=== PATIENT | male | born 1950 | race Two or more races ===

== ENCOUNTER 2016-05-16 11:19 | Inpatient (IN) | payer OTHER ==
[~2016-05-16 11:19] MED LIST: LIDOCAINE 1% 30 ML SDV ONE
--- NOTE | 2016-05-16 11:41 | EDPHY ---
H & P Stated Complaint: SENT BY DR ESTEFANI AMARO FOR MRI Time Seen by Provider: 05/16/16 11:23 HPI/ROS: CHIEF COMPLAINT: increasing bilateral lower extremity weakness HISTORY OF PRESENT ILLNESS: 65-year-old male history of thrombocytopenia, end- stage renal disease, Thursday dialysis schedule, multiple vertebral compression fractures, complaining of 10 days of increasing bilateral lower extremity weakness, unable to ambulate, unable to stand, able to transfer with 2 person assistance. He was seen at [facility] this morning and referred to the ER for evaluation and emergent MRI. He denies: Incontinence, retention, saddle anesthesia, fever, chills, abdominal pain, radicular pain lower extremities, footdrop, chest pain, dyspnea , back pain, dizziness. No home oxygen. Primary care provider: Dr. Gio Crandall in [place] REVIEW OF SYSTEMS: A ten point review of systems was performed and is negative with the exception of the items mentioned in the HPI PAST MEDICAL & SURGICAL HISTORY: End-stage renal disease. Thursday dialysis schedule. Cirrhosis. Thrombocytopenia. Multiple vertebral compression fractures. SOCIAL HISTORY:nonsmoker. No injectable drug use. Lives with family members. PHYSICAL EXAM (Prior to examination, patient consented to physical exam, hands were washed and my usual and customary physical exam procedures followed) 1) GENERAL: , alert and oriented. Appears nontoxic 2) HEAD: Normocephalic, atraumatic 3) HEENT: Pupils equal, round, reactive to light bilaterally. Sclera anicteric. 4) NECK: Full range of motion, no meningeal signs. 5) LUNGS: Clear auscultation bilaterally, no wheezes, no rhonchi, no retractions. 6) HEART: Regular rate and rhythm, no murmur, no heave, no gallop. 7) ABDOMEN: No guarding, no rebound, no focal tenderness, negative McBurney's, negative Mcdowell's, negative Rovsing's, negative peritoneal sign, 8) MUSCULOSKELETAL: Moving all extremities, no focal areas of tenderness, no obvious trauma. No peripheral edema or discoloration. 9) BACK: No CVA tenderness, no midline vertebral tenderness, no fluctuance, no step-off, no obvious trauma, no visual or palpable abnormality. The patella and Achilles reflexes are intact equal bilaterally. 10) SKIN: No rash, no petechiae. 11) Neuro: Patella and Achilles reflexes intact equal bilaterally. Rectal tone is normal. He is unable to stand without 2 person assistance. DIFFERENTIAL DIAGNOSIS: In no particular order, including but not limited to, fracture, sprain/strain, cauda equina, spinal infectious etiology, Guillain- [place]. - Personal History Current Tetanus/Diphtheria Vaccine: Yes Tetanus Vaccine Date: < 10 YEARS - Medical/Surgical History Hx Asthma: No Hx Chronic Respiratory Disease: No Hx Diabetes: Yes Hx Cardiac Disease: Yes Hx Renal Disease: Yes Hx Cirrhosis: Yes Hx Alcoholism: No Hx HIV/AIDS: No Hx Splenectomy or Spleen Trauma: No Other PMH: FRACTURE OF TWO VERTEBRAE, DIABETES, RENAL AND LIVER DISEASE - Social History Smoking Status: Never smoked Constitutional: Initial Vital Signs Temperature (C) 37.1 C 05/16/16 11:21 Heart Rate 70 05/16/16 11:21 Respiratory Rate 16 05/16/16 11:21 Blood Pressure 145/70 H 05/16/16 11:21 O2 Sat (%) 87 L 05/16/16 11:21 O2 Delivery Mode Room Air Allergies/Adverse Reactions: No Known Allergies Allergy (Unverified 05/16/16 11:28) Home Medications: Medication Instructions Recorded ALPRAZolam [Xanax 0.5 MG (*)] 0.5 - 1 mg PO HS 05/16/16 Atorvastatin Calcium [Lipitor 40 40 mg PO DAILY 05/16/16 mg (*)] Esomeprazole Magnesium [Nexium 20 mg PO DAILY 05/16/16 24Hr] Folic Acid/Vitamin B Comp W-C 1 tab PO DAILY 05/16/16 [Galina-Adeline Tablet] Hydrocodone/Acetaminophen 1 each PO Q6H PRN 05/16/16 [Hydrocodon-Acetaminoph 7.5-325] Insulin Glargine [Lantus 100 20 units SC HS 05/16/16 UNITS/ML (*)] Insulin Lispro [humALOG LISPRO 100 15 - 20 unit SC TIDMEAL 05/16/16 units/ml (*)] Lactulose [Constulose] 20 gm PO TID PRN 05/16/16 Metoprolol Tartrate [Lopressor 25 12.5 mg PO SUMOWEFR@09 05/16/16 mg (*)] Metoprolol Tartrate [Lopressor 25 12.5 mg PO SUMOWEFR@05/16/16 mg (*)] Rifaximin [Xifaxan] 550 mg PO BID 05/16/16 Sennosides/Docusate Sodium 2 each PO DAILY 05/16/16 [Senna-Docusate Sodium Tablet] Medical Decision Making - Diagnostics Imaging: MRI of the Lumbar Spine (Without Contrast) at 1156 hour Clinical Indications: Lower extremity weakness. Back pain.. Technique: Sagittal and axial T1 and T2 MR sequences of the lumbar spine without contrast. Axial imaging from T11-S1. Findings: There is marked anterior wedge compression fracture superior endplate of T12 with retropulsion of the posterior superior corner that abuts the anterior aspect of the lower thoracic spinal cord. There is also moderate anterior wedge compression fracture superior endplate of L1 with mild retropulsion posterior body of L1 with mild compression upon the dural sac. There is fluid within the central body of L1. There is also marked compression superior endplate of L4 with mild to moderate retropulsion of the posterior superior corner with moderate compression upon the dural sac along with ligamentum flavum hypertrophy contributes to moderate spinal stenosis. Conus medullaris appears normal and ends at L1. The visualized lower thoracic spinal cord has a normal signal without edema. T12-L1: No disk herniation or stenosis. L1-L2: No disk herniation or stenosis. L2-L3: No disk herniation or stenosis. L3-L4: No disk herniation or stenosis. L4-L5: No disk herniation or stenosis. L5-S1: No disk herniation or stenosis. Impression: 1. Compression fractures with associated edema at T12, L1, and L4. While this could just be related to underlying osteoporosis, the possibility of pathologic fracture cannot be excluded.. 2. Retropulsion posterior superior corner of T12 and L4 as well as the posterior body of L1 contributing to moderate spinal stenosis. Findings were discussed by telephone with Teja Bui PA-C at 1254 hrs. Dictated By: Hayden Escalante MD AP Upright and Lateral Chest Clinical Indications: Chest pain and shortness of breath in a 65-year-old male with a history of recently documented spinal vertebral body fractures. Comparison: No previous chest films are available for comparison. Findings: Shallow inspiration exaggerates lung markings. Peribronchial thickening is noted and streaky perihilar opacities are seen bilaterally. No pleural effusions are identified. There is hyperexpansion seen with flattening of the hemidiaphragms noted. The heart is mildly enlarged allowing for AP technique. Pleural surfaces and bony thorax are negative for acute abnormality. Impression: 1. Findings suggestive of COPD/chronic bronchitis are noted. 2. Increased pulmonary opacities are probably secondary to shallow inspiration. 3. Mild cardiac enlargement. A preliminary report was called to Shayne HERCULES at 1300 hours in the Emergency Department. Dictated By: Tony Conrad MD Images reviewed by myself ED Course/Re-evaluation: 11:30 p.m.: This patient was seen in [facility] this morning referred to the ER for further evaluation. He has been evaluated in the ER by myself. Discussed case Dr. Job Willingham in the ER. He has normal rectal tone and good reflexes in the lower extremities however he is unable to ambulate much less transfer without significant assistance. Will plan for likely admission. 1:00 p.m.: Phone consultation with hospitalist, admit to Dr. Stearns. Reviewed patient's laboratory studies and he has numerous abnormalities consistent with his history of cirrhosis, end-stage renal disease past. He is noted to have an elevated D-dimer and history of hypoxemia with no documented diagnosed history chronic pulmonary disease. With his current creatinine of 3.6 will hold on further imaging of the chest the until evaluated by hospitalist 1:07 pm: Phone consultation with neurosurgery DIOMEDES Lopes with Dr. Ngo who will consult. DIOMEDES Lopes evaluated patient in clinic this morning. - Data Points Laboratory Results: Laboratory Results 05/16/16 11:30 05/16/16 11:30 05/16/16 05/16/16 12:30 11:30 WBC 3.63 L 10^3/uL (3.80-9.50) RBC 2.83 L 10^6/uL (4.40-6.38) Hgb 10.6 L g/dL (13.7-17.5) Hct 30.7 L % (40.0-51.0) MCV 108.5 H fL (81.5-99.8) MCH 37.5 H pg (27.9-34.1) MCHC 34.5 g/dL (32.4-36.7) RDW 15.5 H % (11.5-15.2) Plt Count 66 L 10^3/uL (150-400) MPV 10.4 fL (8.7-11.7) Neut % (Auto) 72.8 % (39.3-74.2) Lymph % (Auto) 14.0 L % (15.0-45.0) [place] % (Auto) 8.0 % (4.5-13.0) Eos % (Auto) 4.1 % (0.6-7.6) Baso % (Auto) 0.8 % (0.3-1.7) Nucleat RBC Rel Count 0.0 % (0.0-0.2) Absolute Neuts (auto) 2.64 10^3/uL (1.70-6.50) Absolute Lymphs (auto) 0.51 L 10^3/uL (1.00-3.00) Absolute Monos (auto) 0.29 L 10^3/uL (0.30-0.80) Absolute Eos (auto) 0.15 10^3/uL (0.03-0.40) Absolute Basos (auto) 0.03 10^3/uL (0.02-0.10) Absolute Nucleated RBC 0.00 10^3/uL (0-0.01) Immature Gran % 0.3 % (0.0-1.1) Immature Gran # 0.01 10^3/uL (0.00-0.10) PT 16.4 H SEC (12.0-15.0) INR 1.32 H (0.83-1.16) APTT 36.9 SEC (23.0-38.0) Sodium 132 L mEq/L (134-144) Potassium 4.2 mEq/L (3.5-5.2) Chloride 97 mEq/L (97-110) Carbon Dioxide 26 mEq/l (22-31) Anion Gap 9 mEq/L (8-16) BUN 26 H mg/dL (7-23) Creatinine 3.6 H mg/dL (0.7-1.3) Estimated GFR 17 Glucose 199 H mg/dL (70-100) Calcium 8.2 L mg/dL (8.5-10.4) Total Bilirubin 3.5 H mg/dL (0.1-1.4) Conjugated Bilirubin 0.2 mg/dL (0.0-0.5) Unconjugated Bilirubin 3.3 H mg/dL (0.0-1.1) AST 23 IU/L (17-59) ALT 22 IU/L (21-72) Alkaline Phosphatase 186 H IU/L (38-126) Troponin I < 0.012 ng/mL (0-0.034) Total Protein 6.6 g/dL (6.3-8.2) Albumin 2.9 L g/dL (3.5-5.0) Patient ABO/Rh O POSITIVE Antibody Screen NEGATIVE Medications Given: Discontinued Medications Hydromorphone HCl (Dilaudid) 1 mg IVP EDNOW ONE Stop: 05/16/16 13:07 Last Admin: 05/16/16 13:18 Dose: 1 mg Ondansetron HCl (Zofran) 4 mg IVP EDNOW ONE Stop: 05/16/16 13:07 Last Admin: 05/16/16 13:18 Dose: 4 mg Departure - Departure Disposition: [facility] Inpatient Acute Clinical Impression: Macrocytic anemia, Thrombocytopenia, History of cirrhosis of liver, End stage renal disease, Hypoxemia, Thoracic compression fracture, Lumbar compression fracture, Spinal stenosis of lumbar region Condition: Fair
[2016-05-16 11:52] LABS: % IMMATURE GRANULYOCYTES 0.3 % (0.0-1.1); ABSOLUTE IMMATURE GRANULOCYTES 0.01 10^3/uL (0.00-0.10); ADD DIFF? NO; ADD MORPH? NO; ADD SCAN? NO; ATYPICAL LYMPHOCYTE FLAG 0 (0-99); FRAGMENT RBC FLAG 0 (0-99); HEMATOCRIT 30.7 % (40.0-51.0); HEMOGLOBIN 10.6 g/dL (13.7-17.5); LEFT SHIFT FLG 0 (0-99); LIPEMIA HEMOLYSIS FLAG 90 (0-99); MEAN CELL HEMOGLOBIN 37.5 pg (27.9-34.1); MEAN CELL HEMOGLOBIN CONCENTR. 34.5 g/dL (32.4-36.7); MEAN CELL VOLUME 108.5 fL (81.5-99.8); MEAN PLATELET VOLUME 10.4 fL (8.7-11.7); PLATELET CLUMPS FLAG 20 (0-99); PLATELET COUNT 66 10^3/uL (150-400); RED BLOOD CELL COUNT 2.83 10^6/uL (4.40-6.38); RED CELL DISTRIBUTION WIDTH 15.5 % (11.5-15.2)
[2016-05-16 12:08] LABS: INR 1.32 (0.83-1.16); PROTIME(PATIENT) 16.4 SEC (12.0-15.0)
[2016-05-16 12:09] LABS: APTT 36.9 SEC (23.0-38.0)
[2016-05-16 12:28] LABS: ALANINE AMINOTRANSFERASE 22 IU/L (21-72); ALBUMIN 2.9 g/dL (3.5-5.0); ALKALINE PHOSPHATASE 186 IU/L (38-126); ANION GAP 9 mEq/L (8-16); ASPARTATE AMINOTRANSFERASE 23 IU/L (17-59); BILIRUBIN,TOTAL 3.5 mg/dL (0.1-1.4); BILIRUBIN-CONJUGATED 0.2 mg/dL (0.0-0.5); BILIRUBIN-UNCONJUGATED 3.3 mg/dL (0.0-1.1); CALCIUM 8.2 mg/dL (8.5-10.4); CARBON DIOXIDE 26 mEq/l (22-31); CHLORIDE 97 mEq/L (97-110); CREATININE 3.6 mg/dL (0.7-1.3); GLOMERULAR FILTRATION RATE 17; GLUCOSE 199 mg/dL (70-100); POTASSIUM 4.2 mEq/L (3.5-5.2); SODIUM 132 mEq/L (134-144); TOTAL PROTEIN 6.6 g/dL (6.3-8.2)
[2016-05-16 12:40] LABS: TROPONIN I < 0.012 ng/mL (0-0.034)
--- NOTE | 2016-05-16 12:55 | MR ---
MRI of the Lumbar Spine (Without Contrast) at 1156 hour Clinical Indications: Lower extremity weakness. Back pain.. Technique: Sagittal and axial T1 and T2 MR sequences of the lumbar spine without contrast. Axial i maging from T11-S1. Findings: There is marked anterior wedge compression fracture superior endplate of T12 with retropul theresa of the posterior superior corner that abuts the anterior aspect of the lower thoracic spinal cor d. There is also moderate anterior wedge compression fracture superior endplate of L1 with mild retro pulsion posterior body of L1 with mild compression upon the dural sac. There is fluid within the cent ral body of L1. There is also marked compression superior endplate of L4 with mild to moderate retrop ulsion of the posterior superior corner with moderate compression upon the dural sac along with ligam entum flavum hypertrophy contributes to moderate spinal stenosis. Conus medullaris appears normal an d ends at L1. The visualized lower thoracic spinal cord has a normal signal without edema. T12-L1: No disk herniation or stenosis. L1-L2: No disk herniation or stenosis. L2-L3: No disk herniation or stenosis. L3-L4: No disk herniation or stenosis. L4-L5: No disk herniation or stenosis. L5-S1: No disk herniation or stenosis. Impression: 1. Compression fractures with associated edema at T12, L1, and L4. While this could just be related t o underlying osteoporosis, the possibility of pathologic fracture cannot be excluded.. 2. Retropulsion posterior superior corner of T12 and L4 as well as the posterior body of L1 contribut ing to moderate spinal stenosis. Findings were discussed by telephone with Teja Bui PA-C at 1254 hrs.
--- NOTE | 2016-05-16 13:00 | CPEKG ---
Heart Rate: 70 RR Interval: 857 P-R Interval: 168 QRSD Interval: 96 QT Interval: 436 QTC Interval: 471 P Mcfaddin: -19 QRS Mcfaddin: 16 T Wave Mcfaddin: 35 EKG Severity - NORMAL ECG - EKG Impression: SINUS RHYTHM Electronically Signed By: Job Willingham 16-May-2016 13:33:18
[2016-05-16] MEDS ORDERED: HYDROmorphONE/DILAUDID 1 MG/ML SYR IVP ONE (13:06)
[2016-05-16] MEDS ORDERED: ONDANSETRON 4 MG/2 ML VIAL IVP ONE (13:06)
--- NOTE | 2016-05-16 13:06 | DX ---
AP Upright and Lateral Chest Clinical Indications: Chest pain and shortness of breath in a 65-year-old male with a history of rec ently documented spinal vertebral body fractures. Comparison: No previous chest films are available for comparison. Findings: Shallow inspiration exaggerates lung markings. Peribronchial thickening is noted and streak y perihilar opacities are seen bilaterally. No pleural effusions are identified. There is hyperexpans ion seen with flattening of the hemidiaphragms noted. The heart is mildly enlarged allowing for AP te chnique. Pleural surfaces and bony thorax are negative for acute abnormality. Impression: 1. Findings suggestive of COPD/chronic bronchitis are noted. 2. Increased pulmonary opacities are probably secondary to shallow inspiration. 3. Mild cardiac enlargement. A preliminary report was called to Shayne HERCULES at 1300 hours in the Emergency Department.
--- NOTE | 2016-05-16 14:19 | US ---
Ultrasound Venous Duplex/Doppler left Leg History: Pain and swelling. Findings: Ultrasound venous duplex and Doppler imaging of the common femoral vein, femoral vein, pop liteal vein, calf veins, greater saphenous vein origin, and contralateral common femoral vein demonst rates normal compressibility, color flow, and Doppler flow without deep venous thrombosis. Impression: No deep venous thrombosis left leg. Results called to Shayne Bui PA-C.
[2016-05-16] MEDS ORDERED: ONDANSETRON DISINTEGRATING 4 MG TAB PO PRN (15:41)
[2016-05-16] MEDS ORDERED: ACETAMINOPHEN 325 MG TAB PO PRN (15:41)
[2016-05-16] MEDS ORDERED: HYDROmorphONE/DILAUDID 1 MG/ML SYR IVP PRN (15:41)
[2016-05-16] MEDS ORDERED: ONDANSETRON 4 MG/2 ML VIAL IVP PRN (15:41)
[2016-05-16] MEDS ORDERED: NS 1,000 ML IV SCH (15:45)
[2016-05-16] MEDS ORDERED: D50W 25 GM/50 ML SYR IVP PRN (15:47)
--- NOTE | 2016-05-16 15:47 | MR ---
MRI Thoracic Spine Without Contrast History: Leg weakness. Back pain. Fracture of the lumbar spine. Comparison: MRI of the lumbar spine performed earlier today. Technique: MRI was performed of the thoracic spine using a 3 Amanda MRI system. Sagittal, coronal, and axial imaging was obtained with standard imaging sequences. Findings: The severe compression fractures of T12 and L1 are again visualized and described in the MR I lumbar spine report. There is mild anterior wedge compression deformity of T2, T5, and T4 vertebral bodies involving the superior endplate anteriorly. No evidence of bone marrow edema indicating these are chronic. Thoracic spinal cord is normal in size and signal intensity. T1-T2 through T6-T7 levels are unremarkable. T7-T1 level demonstrates a small central protrusion minimally effacing the anterior thecal sac and mi ld uncovertebral joint hypertrophy causing mild left neural foraminal narrowing. T8-T9 level is unremarkable. T9-T10 level demonstrates a small right parasagittal protrusion mildly effacing the anterior thecal s ac. T10-T11 level is unremarkable. T11-T12 level demonstrates a mild retropulsion of the posterior cortex of T12 described in the MRI wendy mbar spine report. Impression: 1. The severe compression fractures of T12 and L1 are described in the MRI lumbar spine report perfor med earlier today. 2. Mild chronic anterior wedge compression deformities with a chronic appearance of T12, T4, and T5 v ertebral bodies. 3. Mild multilevel degenerative disk and degenerative joint disease of the thoracic spine as detailed above.
--- NOTE | 2016-05-16 16:01 | PDGENHP ---
History and Physical - Chief Complaint BILATERAL LE WEAKNESS - History of Present Illness 65-year-old male history of thrombocytopenia, end-stage renal disease, Thursday dialysis schedule, multiple vertebral compression fractures, complaining of 10 days of increasing bilateral lower extremity weakness, unable to ambulate, unable to stand, able to transfer with 2 person assistance. He was seen at [facility] this morning and referred to the ER for evaluation and emergent MRI. He denies: Incontinence, retention, saddle anesthesia, fever, chills, abdominal pain, radicular pain lower extremities, footdrop, chest pain, dyspnea , back pain, dizziness. No home oxygen. MRI is c/w acute T12-L4 compression fracture. ROS: + per HPI, otherwise negative PMHX: cirrhosis, ESRD, thrombocytopenia, IDDM, HTN, Compression fracture, GERD, HLD Soc: prior ETOH, prior Tobacco, no illicits FmHx: unknown Med/all: see med rec O: VSS NAD AAOX3 MMM RRR CTA B S/NT/ND NO EDEMA ABLE TO MOVE BOTH LEGS History Information - Allergies/Home Medication List Allergies/Adverse Reactions: No Known Allergies Allergy (Unverified 05/16/16 11:28) Home Medications: ALPRAZolam [Xanax 0.5 MG (*)] 0.5 - 1 mg PO HS 05/16/16 [Last Taken 05/15/16] Atorvastatin Calcium [Lipitor 40 mg (*)] 40 mg PO DAILY 05/16/16 [Last Taken ] Esomeprazole Magnesium [Nexium 24Hr] 20 mg PO DAILY 05/16/16 [Last Taken ] Folic Acid/Vitamin B Comp W-C [Galina-Adeline Tablet] 1 tab PO DAILY 05/16/16 [Last Taken Unknown] Hydrocodone/Acetaminophen [Hydrocodon-Acetaminoph 7.5-325] 1 each PO Q6H PRN [Last Taken Unknown] Insulin Glargine [Lantus 100 UNITS/ML (*)] 20 units SC HS 05/16/16 [Last Taken 05/15/16] Insulin Lispro [humALOG LISPRO 100 units/ml (*)] 15 - 20 unit SC TIDMEAL [Last Taken 05/15/16] Lactulose [Constulose] 20 gm PO TID PRN 05/16/16 [Last Taken 05/15/16] Metoprolol Tartrate [Lopressor 25 mg (*)] 12.5 mg PO SUMOWEFR@09 05/16/16 [Last Taken 05/15/16] Metoprolol Tartrate [Lopressor 25 mg (*)] 12.5 mg PO SUMOWEFR@05/16/16 [Last Taken 05/15/16] Rifaximin [Xifaxan] 550 mg PO BID 05/16/16 [Last Taken 05/15/16] Sennosides/Docusate Sodium [Senna-Docusate Sodium Tablet] 2 each PO DAILY [Last Taken 05/15/16] I have personally reviewed and updated: medical history, social history - Social History Smoking Status: Never smoked Physical Exam Temp Pulse Resp BP Pulse Ox 37.1 C 61 16 133/72 H 100 05/16/16 11:21 05/16/16 14:00 05/16/16 14:00 05/16/16 14:00 05/16/16 14:00 Lab Data & Imaging Review 05/16/16 11:30 05/16/16 11:30 WBC 3.63 10^3/uL (3.80-9.50) L 05/16/16 11:30 RBC 2.83 10^6/uL (4.40-6.38) L 05/16/16 11:30 Hgb 10.6 g/dL (13.7-17.5) L 05/16/16 11:30 Hct 30.7 % (40.0-51.0) L 05/16/16 11:30 MCV 108.5 fL (81.5-99.8) H 05/16/16 11:30 MCH 37.5 pg (27.9-34.1) H 05/16/16 11:30 MCHC 34.5 g/dL (32.4-36.7) 05/16/16 11:30 RDW 15.5 % (11.5-15.2) H 05/16/16 11:30 Plt Count 66 10^3/uL (150-400) L 05/16/16 11:30 MPV 10.4 fL (8.7-11.7) 05/16/16 11:30 Neut % (Auto) 72.8 % (39.3-74.2) 05/16/16 11:30 Lymph % (Auto) 14.0 % (15.0-45.0) L 05/16/16 11:30 [place] % (Auto) 8.0 % (4.5-13.0) 05/16/16 11:30 Eos % (Auto) 4.1 % (0.6-7.6) 05/16/16 11:30 Baso % (Auto) 0.8 % (0.3-1.7) 05/16/16 11:30 Nucleat RBC Rel Count 0.0 % (0.0-0.2) 05/16/16 11:30 Absolute Neuts (auto) 2.64 10^3/uL (1.70-6.50) 05/16/16 11:30 Absolute Lymphs (auto) 0.51 10^3/uL (1.00-3.00) L 05/16/16 11:30 Absolute Monos (auto) 0.29 10^3/uL (0.30-0.80) L 05/16/16 11:30 Absolute Eos (auto) 0.15 10^3/uL (0.03-0.40) 05/16/16 11:30 Absolute Basos (auto) 0.03 10^3/uL (0.02-0.10) 05/16/16 11:30 Absolute Nucleated RBC 0.00 10^3/uL (0-0.01) 05/16/16 11:30 Immature Gran % 0.3 % (0.0-1.1) 05/16/16 11:30 Immature Gran # 0.01 10^3/uL (0.00-0.10) 05/16/16 11:30 PT 16.4 SEC (12.0-15.0) H 05/16/16 11:30 INR 1.32 (0.83-1.16) H 05/16/16 11:30 APTT 36.9 SEC (23.0-38.0) 05/16/16 11:30 D-Dimer 1.97 ug/mLFEU (0.00-0.50) H 05/16/16 Unknown Sodium 132 mEq/L (134-144) L 05/16/16 11:30 Potassium 4.2 mEq/L (3.5-5.2) 05/16/16 11:30 Chloride 97 mEq/L (97-110) 05/16/16 11:30 Carbon Dioxide 26 mEq/l (22-31) 05/16/16 11:30 Anion Gap 9 mEq/L (8-16) 05/16/16 11:30 BUN 26 mg/dL (7-23) H 05/16/16 11:30 Creatinine 3.6 mg/dL (0.7-1.3) H 05/16/16 11:30 Estimated GFR 17 05/16/16 11:30 Glucose 199 mg/dL (70-100) H 05/16/16 11:30 Calcium 8.2 mg/dL (8.5-10.4) L 05/16/16 11:30 Total Bilirubin 3.5 mg/dL (0.1-1.4) H 05/16/16 11:30 Conjugated Bilirubin 0.2 mg/dL (0.0-0.5) 05/16/16 11:30 Unconjugated Bilirubin 3.3 mg/dL (0.0-1.1) H 05/16/16 11:30 AST 23 IU/L (17-59) 05/16/16 11:30 ALT 22 IU/L (21-72) 05/16/16 11:30 Alkaline Phosphatase 186 IU/L (38-126) H 05/16/16 11:30 Troponin I < 0.012 ng/mL (0-0.034) 05/16/16 11:30 Total Protein 6.6 g/dL (6.3-8.2) 05/16/16 11:30 Albumin 2.9 g/dL (3.5-5.0) L 05/16/16 11:30 Patient ABO/Rh O POSITIVE 05/16/16 12:30 Antibody Screen NEGATIVE 05/16/16 12:30 Assessment & Plan Assessment: #ACUTE COMPRESSION FRACTURE OF T12-L4 #BILATERAL LOWER EXTREMITY WEAKNESS DUE TO ACUTE COMPRESSION FRACTURE AND SPINAL STENOSIS #ESRD, ON HD T,TH,SAT #HX OF CIRRHOSIS #THROMBOCYTOPENIA DUE TO LIVER DISEASE #IDDM, ON HOME INSULIN, ISS STARTED #ANEMIA #HLD PLAN: ADMIT NEURO TO CONSULT WILL KEEP NPO UNTIL SEEN BY NEURO NEPHROLOGY TO CONSULT RE DIALYSIS SCD'S PAIN MANAGEMENT CONT HOME MEDS APPROPRIATE TOTAL CARE TIME IS 60 MINS
[2016-05-16] MEDS: oxyCODONE IR 5 MG TAB PO PRN ×2 (17:35→20:56)
--- NOTE | 2016-05-16 17:41 | GCON ---
[f rep st] CONSULTATION NEUROSURGERY CONSULTATION CHIEF COMPLAINT: Worsening leg weakness. HISTORY OF PRESENT ILLNESS: The patient is a 65-year-old male patient, who presented to our office t justa with worsening leg weakness. He has a history significant for thrombocytopenia, end-stage renal disease on dialysis, multiple vertebral compression fractures of the past several months. We most r ecently discovered a new L1 compression fracture which we have been treating conservatively in a [facility] e. The patient presented to clinic today with repeat followup x-rays which did show stable fracture; however, he reported worsening weakness in his legs. His states he has difficulty getting up t o use the bathroom and is unstable. He states he can no longer get into his truck and has lost the a bility to be able to drive. Given his concerning worsening neurologic status, he was directed to the emergency room for further treatment and workup. On examination today, the patient complained of pa in in the back of his legs and stated his legs are weak. He was in a wheelchair. He denied any numb ness or tingling. No loss of function in his arms. No nausea, vomiting, headaches, vision changes. He also denied any incontinence. REVIEW OF SYSTEMS: Please see above mentioned in the HPI. PAST MEDICAL/SURGICAL HISTORY: End-stage renal disease on dialysis, cirrhosis, thrombocytopenia, lum bar and thoracic compression fractures. SOCIAL HISTORY: The patient is . He lives with his in [place]. He is a nonsmoker, no drug use. ALLERGIES: He has no known drug allergies. MEDICATIONS: At home: Xanax, Lipitor, Nexium, folic acid, [place], insulin, lactulose, metoprolol, ri faximin, senna. FAMILY HISTORY: Significant for diabetes and hypertension in the family. PHYSICAL EXAMINATION: VITAL SIGNS: Blood pressure is 133/72, respirations 16, O2 saturation 100% on room air, heart rate is 61. GENERAL: Well-developed, elderly male patient, seated in a wheelchair. He is in no acute distress. He moves all extremities independently. Motor examination of bilatera l upper extremities is without gross motor deficits. Motor examination of bilateral lower extremitie s is approximately 4+ out of 5 for hip flexion, flexion and extension of the knee and plantar and kaia siflexion. He has intact sensation throughout the normal dermatomal distribution of his body. He an d his state that he has extreme difficulty getting up out of his wheelchair. Cranial nerves 2-1 2 are grossly intact. His breathing is nonlabored. Rectal examination was performed by ER DIOMEDES and th e report is that the patient had normal rectal tone. LABORATORY: White blood cells 3.63, red blood cells 2.83, hemoglobin 10.6, hematocrit 30, platelet c ount is 66. PT is 16.4, INR is 1.32, APTT is 36.9. D-dimer is 1.97. Chemistry: Sodium is 132, pot assium 4.2, chloride 97, carbon dioxide 26, anion gap 9, BUN 26, creatinine 3.6, GFR 17, glucose 199, calcium 8.2, total bilirubin 3.5, conjugated bilirubin 0.2, unconjugated 3.3, AST is 23, ALT is 22, alkaline phosphatase is 186. Troponin less than 0.012. Total protein is 6.6, albumin is 2.9. ABO R h, he is O positive, antibody screen negative. IMAGING: MRI of the lumbar spine, without contrast: Compression fractures with associated edema at T12-L1 and L4. While this could just be related to underlying osteoporosis, the possibility of patho logic fracture cannot be excluded. Retropulsion posterior superior corner of T12 and L4 as well as t he posterior body of L1 contributing to moderate spinal stenosis. Chest x-ray, impression: Findings suggestive of COPD/chronic bronchitis are noted. Increased pulmonary opacities are probably seconda ry to shallow inspiration. Mild cardiac enlargement. Addendum: Not mentioned in the original repor t, linear calcification is seen in the right neck which could reflect carotid arterial calcification versus artifact of some kind. Electrocardiogram: Normal ECG in sinus rhythm. Venous study of left leg: No deep vein thrombosis of the left leg. IMPRESSION: This is a 65-year-old male patient with known lumbar compression fractures with worsenin g leg weakness, admitted to the hospitalist service for further workup of his weakness. PLAN: Dr. Ngo and I have both seen the patient today. We have reviewed his lumbar spine MRI. Al though he does have some stenosis associated with his compression fractures with a little bit of retr opulsion, there is no significant cord compression that would explain his recent weakness in his legs . We have therefore ordered an MRI of the thoracic spine to look for any other areas of possible cor d compression that could explain his leg weakness. The patient has been admitted to the Internal Med icine service for further workup of his multiple medical issues and to examine for any other potentia l sources of his weakness. Please contact the neurosurgery service with any additional questions or concerns. /[id number]/MODL
[2016-05-16] MEDS ORDERED: LACTULOSE 20 GM/30 ML UDCUP PO PRN (18:30)
[2016-05-16] MEDS ORDERED: HYDROCODONE/APAP 10/325 TAB PO PRN (18:31)
[2016-05-16] MEDS: INSULIN LISPRO 100 UNIT/ML SC SCH (18:47)
[2016-05-16] MEDS: RIFAXIMIN 550 MG TAB PO SCH (20:55)
[2016-05-16] MEDS: ALPRAZolam 0.5 MG TAB PO SCH (20:55)
[2016-05-16] MEDS ORDERED: METOPROLOL TARTRATE 25 MG TAB PO SCH (21:00)
[2016-05-16] MEDS: INSULIN GLARGINE 100 UNITS/ML SYRINGE SC SCH (21:11)
--- NOTE | 2016-05-16 22:22 | GCON ---
[f rep st] CONSULTATION DATE OF CONSULTATION: 05/16/2016 REASON FOR CONSULTATION: End-stage renal disease, in need of dialysis. REASON FOR ADMISSION: Back pain with multiple fractures with new neurologic symptoms. PLAN: 1. Hep-Lock IV. 2. Avoid IVs, blood pressures, blood draws in the patient's left arm. 3. Plan for dialysis in the morning. 4. Treat pain as you are doing next followup on Neurosurgery's recommendation regarding any further evaluation and/or treatment. HISTORY: The patient is a very pleasant, 65-year-old gentleman I have been asked to consult on by Dr Dale Stearns. He was admitted after being seen in the neurosurgery office today due to increased neurologic symptoms in the presence of multiple compression fractures in his thoracolumbar spine. He has end-stage renal disease, and has been on dialysis a little bit over 3 years. He has underlyin g diabetes and hypertension. He also carries the diagnosis of alcoholic cirrhosis complicated by por ariel hypertension with varices and thrombocytopenia. He is followed by Hepatology down at [facility]. Describes having had banding and other treatment of his varices. He has not had any alcohol for last 4 years or so. His other medical problems include history of gall stones, coronary artery disease requiring stent pl acement, gastroesophageal reflux disease, and hyperlipidemia. Surgical procedures have been treatment of his esophageal varices, cardiac stent placement, AV fistul a construction, and cataract surgery. MEDICATIONS: Outpatient medications have been lactulose 20 grams p.o. 3 times daily as needed, Nexiu m 20 mg daily, folic acid in the form of [place] 1 daily, senna docusate tablet 2 tablets daily, At orvastatin 40 mg daily, Xanax 0.5 to 1 mg at bedtime, metoprolol tartrate 12.5 mg 4 times weekly in t he evening Thursday, Thursday, Thursday, Thursday and 12.5 mg in the morning, Thursday, Thursday, Thursday, . It looks like he takes no hypertensive medications on his dialysis days. He takes insulin gl argine in the form of Lantus 20 units at bedtime, Vicodin 7.5/325 every 6 hours as needed for pain, l ispro insulin 15 to 20 units with each meal, and Xifaxan 550 mg twice daily. ALLERGIES: None. FAMILY HISTORY: Noncontributory. SOCIAL HISTORY: Noncontributory. He dialyzes Thursday, , Thursday at the [facility]ialysis unit under the care of Dr. Harrison Sykes. He underwent his regular dialysis yesterday. He states sometimes he is cramping when he has too much fluid removed. He has bleeding related to his thrombocytopenia after cannulation of hi s fistula and needs to use special bandages to prevent excessive bleeding. REVIEW OF SYSTEMS: Negative except for that described above. PHYSICAL EXAMINATION: GENERAL: He is afebrile with a temp of 36.8, pulse 72, respirations 20, blood pressure 152/69, saturating 100% on 2 liters nasal cannula. Appears in no apparent distress. He is a thin elderly male, lying flat in bed. HEENT: Atraumatic, normocephalic. NECK: Unremarkable. H EART: Regular with no extra heart sounds. LUNGS: Grossly clear to auscultation. ABDOMEN: Positiv e bowel sounds. Soft, nontender. No obvious organomegaly or masses. EXTREMITIES: Free of edema. SKIN: Free of rashes. His left upper arm AV fistula is patent and otherwise unremarkable. LABORATORY DATA: Labs show a potassium of 4.2, INR elevated at 1.32, and hemoglobin 10.6, with a matias telet count of 66,000. ASSESSMENT: End-stage renal disease, in need of dialysis. We will plan for his routine dialysis jake orrow. Will probably be done late morning or early afternoon. Hepatitis serologies have been reques helen from his dialysis unit. He should be able to be done in the dialysis room. We will bring him do wn in his bed and try and to keep him comfortable given his back problems. His dialysis access looks unremarkable. Has a good bruit and thrill. It looks like he had a recent infiltrate. The lower part of his fistula looks good and should be suitable for cannulation. He typically has modest amounts of fluid accumulation. I am going to Hep-Lock his IV as this will ju st interfere with his fluid balance associated with his end-stage renal disease. We will try and ult rafilter him for a liter of fluid. He has no lower extremity edema and, therefore, I do not think he has much in the way of volume overload currently. Copy requested to: [facility] /[id number]/MODL
[2016-05-17] MEDS: oxyCODONE IR 5 MG TAB PO PRN ×4 (04:05→20:17)
[2016-05-17 05:37] LABS: % IMMATURE GRANULYOCYTES 0.3 % (0.0-1.1); ABSOLUTE IMMATURE GRANULOCYTES 0.01 10^3/uL (0.00-0.10); ADD DIFF? NO; ADD MORPH? NO; ADD SCAN? NO; ATYPICAL LYMPHOCYTE FLAG 10 (0-99); FRAGMENT RBC FLAG 0 (0-99); HEMATOCRIT 31.7 % (40.0-51.0); HEMOGLOBIN 10.9 g/dL (13.7-17.5); LEFT SHIFT FLG 0 (0-99); LIPEMIA HEMOLYSIS FLAG 90 (0-99); MEAN CELL HEMOGLOBIN CONCENTR. 34.4 g/dL (32.4-36.7); MEAN CELL VOLUME 110.5 fL (81.5-99.8); MEAN PLATELET VOLUME 8.6 fL (8.7-11.7); PLATELET CLUMPS FLAG 0 (0-99); PLATELET COUNT 70 10^3/uL (150-400); RED BLOOD CELL COUNT 2.87 10^6/uL (4.40-6.38); RED CELL DISTRIBUTION WIDTH 15.3 % (11.5-15.2)
[2016-05-17 05:50] LABS: ANION GAP 8 mEq/L (8-16); CALCIUM 8.8 mg/dL (8.5-10.4); CARBON DIOXIDE 25 mEq/l (22-31); CHLORIDE 100 mEq/L (97-110); CREATININE 4.5 mg/dL (0.7-1.3); GLOMERULAR FILTRATION RATE 13; GLUCOSE 102 mg/dL (70-100); POTASSIUM 4.6 mEq/L (3.5-5.2); SODIUM 133 mEq/L (134-144)
[2016-05-17] MEDS: INSULIN LISPRO 100 UNIT/ML SC SCH ×3 (07:57→17:35)
[2016-05-17] MEDS ORDERED: ATORVASTATIN CALCIUM 40 MG TAB PO SCH (09:00)
--- NOTE | 2016-05-17 09:00 | SOAPPROG ---
MICHAEL Progress Note Assessment/Plan: Assessment:Plan: ESRD-plan for Hd today -RN will be in around 10 -will need Tipstops on AVF cannulation sites due to thrombocytopenia -if he ends up with bleeding, we may want to use smaller needles in the future Access-looks stable Back pain-per neurosurgery 05/17/16 08:58 Subjective: foot pain and numbness Objective: Vital Signs Temp Pulse Resp BP Pulse Ox 36.6 C 67 17 134/58 H 98 05/17/16 08:02 05/17/16 08:02 05/17/16 08:02 05/17/16 08:02 05/17/16 08:02 Laboratory Results 05/17/16 05:29 05/17/16 05:29 PT 16.4 SEC (12.0-15.0) H 05/16/16 11:30 INR 1.32 (0.83-1.16) H 05/16/16 11:30 Physical Exam - Physical Exam General Appearance: WD/WN, alert, mild distress EENT: normal ENT inspection Neck: normal inspection Respiratory: lungs clear, normal breath sounds, No respiratory distress Cardiac/Chest: regular rate, rhythm, other (possible murmur) Abdomen: normal bowel sounds, non-tender, soft Extremities: No swelling ICD10 Worksheet Patient Problems: Problems Problem Status Diagnosed End stage renal disease Acute History of cirrhosis of liver Acute Hypoxemia Acute Lumbar compression fracture Acute Macrocytic anemia Acute Spinal stenosis of lumbar region Acute Thoracic compression fracture Acute Thrombocytopenia Acute
[2016-05-17 09:47] LABS: HEMATOCRIT 31.5 % (40.0-51.0)
[2016-05-17 10:25] LABS: C-REACTIVE PROTEIN 5.7 mg/L (<10.0)
--- NOTE | 2016-05-17 13:17 | NEUSURGPN ---
Assessment/Plan: HD#1 admitted with ?LE weakness and back pain. Has T12, L1, L4 severe compression fractures. MRI lumbar spine shows moderate canal stenosis, but no obvious nerve compression. The T-spine MRI again shows severe compression fx but no neural compression. -His platelets are 70k today - given his many cormorbidities and thrombocytopenia he is not a great surgical candidate -possibly a candidate for kyphoplasty if his pain cannot be controlled medically and if his platelets can be kept above 75k would recommend medical pain control for now, ema brace if it helps with pain Subjective: complains of severe low back pain Objective: AAOx3 TUCKER x 4, strength seems full in all extremities sensation normal, c/o severe pain with palpation of the low back - Physician Patient Seen by : [facility] Physical Exam - Vitals, I&O, Labs I and O 05/16/16 05/17/16 05/18/16 05:59 05:59 05:59 Weight 66 kg Vital Signs Temp Pulse Resp BP Pulse Ox 36.6 C 67 17 134/58 H 98 05/17/16 08:02 05/17/16 08:02 05/17/16 08:02 05/17/16 08:02 05/17/16 08:02 Laboratory Results 05/17/16 05:30 05/17/16 05:29 ICD10 Worksheet Patient Problems: Problems Problem Status Diagnosed End stage renal disease Acute History of cirrhosis of liver Acute Hypoxemia Acute Lumbar compression fracture Acute Macrocytic anemia Acute Spinal stenosis of lumbar region Acute Thoracic compression fracture Acute Thrombocytopenia Acute
--- NOTE | 2016-05-17 14:23 | GCON ---
[f rep st] CONSULTATION NEUROLOGY CONSULTATION DATE OF CONSULTATION: 05/17/2016 REFERRING PHYSICIAN: Yayo David MD CHIEF COMPLAINT: Lower extremity weakness. HISTORY OF PRESENT ILLNESS: The patient is a very pleasant 65-year-old gentleman who is dialysis dependent who has had mid and low back pain for 1 year. In the last 2 weeks, his pain has been increasing with significant pain in his bilateral lower extremities, radiating from his low back into his buttocks into his proximal lower extremities. This has decreased his ability to ambulate. He reports more pain than weakness, but also when questioned feels there is weakness as well. No symptoms in his upper extremities or bulbar region. No cognitive symptoms. No constitutional symptoms. No recent infections. No incontinence or saddle anesthesia. He denies a zion sensory level or does not speak much about any sensory symptoms. When asked, he was not forthcoming about any definitive numbness. He may be having some paresthetic pain in his lower extremities. REVIEW OF SYSTEMS: A 10-point review of systems was performed and only pertinent to the HPI. PAST MEDICAL HISTORY: Please refer to Dr. Stearns's history and physical. SOCIAL HISTORY: Please refer to Dr. Stearns's history and physical. FAMILY HISTORY: Please refer to Dr. Stearns's history and physical. HOME MEDICATIONS: Please refer to Dr. Stearns's history and physical. ALLERGIES: Please refer to Dr. Stearns's history and physical. PHYSICAL EXAMINATION: VITAL SIGNS: Blood pressure 116/52, heart rate 67, he is afebrile at 36.6, respiratory rate is 17. NEUROLOGIC: Higher mental function : Patient is awake and alert. He is lucid. I am able to converse with him normally. On his cranial nerve exam, it is normal II through VII and XII. On his motor exam, his upper extremity strength is normal and deep tendon reflexes are 0 to 1+, normal, symmetric. Lower extremity: The pain the patient has very limited power testing due to pain in the hip and knee flexors and extensors. When the patient tried to extend at the left hip, it causes increased pain in the right leg, but when extending his right hip there was less pain. Distally, his anterior and posterior tibialis and gastrocnemius muscles were normal. The patient had 3+ reflexes at his knees bilaterally and an upgoing toe on the left; with right plantar stimulation was indeterminate. Sensory exam: The patient endorsed normal light touch. Coordination was unremarkable. LABORATORY TESTS: The patient had a lumbar MRI which showed compression fractures with associated edema at T12-L1 and L4, in addition retropulsion posterior superior corner of T12 and L4, at the posterior body of L1 contributing to moderate spinal stenosis. He also had a thoracic MRI confirming severe compression fractures T12 and L1 described an MRI of the lumbar spine report, along with some mild chronic anterior wedge compression deformities of T12, T4, T5. IMPRESSION AND PLAN: 1. Lower extremity weakness. 2. [id number] back pain. 3. Lower extremity pain. 4. Lumbar spinal stenosis. 5. Renal Failure, on HD The patient has significantly brisk reflexes in his lower extremities which would exclude other conditions like Guillain-[place] syndrome at this point. Overall, the clinical history and neurologic exam best fit with the thoracolumbar spinal disease visualized on his MRI. He is having quite a bit of pain related to his disk disease which may be limiting his mobility, but there are neurologic changes in the form of brisk reflexes, which is also likely symptomatic from his spine, along with some weakness. It is certainly difficult the parse out at this point because his exam is limited by pain. I discussed these findings with the Neurosurgery Team, Lori HERCULES, and she will speak with her attending from Neurosurgery. Further management per Neurosurgery regarding his spinal disease. I have no further recommendations now. We will sign off and continue to follow as needed. Please do not hesitate to call if there are any further questions or neurologic changes with this very pleasant gentleman. Thank you for this consultation. /[id number]/MODL MTDD
[2016-05-17] MEDS: NEPHROVITE FOLIC ACID/VIT B&C 1 TAB PO SCH (15:48)
[2016-05-17] MEDS: PANTOPRAZOLE SODIUM 40 MG TAB PO SCH (15:48)
[2016-05-17] MEDS: SENNOSIDES/DOCUSATE SODIUM TAB PO SCH (15:48)
[2016-05-17] MEDS: RIFAXIMIN 550 MG TAB PO SCH ×2 (15:51→20:15)
--- NOTE | 2016-05-17 16:24 | HOSPPROG ---
Hospitalist Progress Note Assessment/Plan: Assessment: 65-year-old male presents with acute bilateral lower extremity paresis in the setting of acute thoracolumbar vertebral body compression fracture Plan: 1. Paresis. Acute, most likely secondary to thoracolumbar process, although overt cord compression not noted on CT or L-spine MRI. -discussed with Dr. Zaidi, he advises that patient's neurologic exam is consistent with thoraco lumbar process given his brisk reflexes and a positive Babinski on left lower extremity as well as weakness and urinary retention -encourage ongoing neuro surgical consultation with the patient to ensure that he understands that there is a risk of progressive and potentially permanent paresis if he does not elect for surgery 2. Thoracolumbar vertebral body compression fracture. Acute, present on MRI, resulting in significant amount of lower back pain as well as bilateral radiculopathy -interventional options currently include neurosurgery versus kyphoplasty -will obtain interventional radiology consultation so that patient and understand what kyphoplasty entails and that it may relieve pain symptoms at the local affected area but may not eliminate his risk of paresis or paralysis if further compression ensues -patient with RCRI score of 3-4, conferring at least of 5% perioperative risk of cardiovascular morbidity and mortality, at least a 9% risk of perioperative pulmonary edema/ventricular arrhythmias/other cardiac events -continue pain management strategies and introduce low-dose gabapentin 3. End-stage renal disease. Continue hemodialysis as scheduled, received today 4. Thrombocytopenia. Secondary to chronic liver disease, will ultimately affect the decision not to proceed or not proceed with surgery -continue to monitor serum platelet level and consider platelet transfusion prior to surgical procedure given patient's low platelet count as well as high likelihood of some platelet dysfunction in the setting of end-stage renal disease 5. Cirrhosis. Chronic 6. Diabetes mellitus. Insulin dependent, continue on insulin sliding scale, A1c pending Diet. Renal, NPO after midnight in case procedure tomorrow Prophylaxis. High risk patient, heparin subcu, hold tonight's dosing and placed on SCDs Code. Full Disposition. Anticipated discharge uncertain at this time, anticipated length stay remains greater than 48 hours warranting inpatient admission status for acute paresis in the setting of thoracolumbar vertebral body compression fracture requiring surgical intervention but complicated by end-stage renal disease and thrombocytopenia. I discussed the outlined for possible surgical options with the patient and his , deferring specific questions to our neurosurgical consults as well as Interventional Radiology once available. Subjective: Patient reports ongoing pain in his bilateral hips, has not moved his bowels has not urinated Objective: Vital Signs Temp Pulse Resp BP Pulse Ox 36.6 C 87 16 140/58 H 100 05/17/16 08:02 05/17/16 15:58 05/17/16 15:58 05/17/16 15:58 05/17/16 15:58 Laboratory Results 05/17/16 05:30 05/17/16 05:29 PT 16.4 SEC (12.0-15.0) H 05/16/16 11:30 INR 1.32 (0.83-1.16) H 05/16/16 11:30 - Time Spent With Patient Time Spent with Patient: greater than 35 minutes Time Spent with Patient: Greater than 35 minutes spent on this patients care, greater than 50% of time spent counseling, educating, and coordinating care regarding the above mentioned plan. - Physical Exam Constitutional: no apparent distress, chronically ill appearing, uncomfortable, No not in pain Eyes: PERRL, anicteric sclera, EOMI Cardiovascular: systolic murmur (2/6 at the sternum), edema (Bilateral ankles, trace), No irregularly irregular, No tachycardia Respiratory: no respiratory distress, no rales or rhonchi, clear to auscultation Gastrointestinal: normoactive bowel sounds, soft, non-tender abdomen, no palpable masses Neurologic: AAOx3, sensation intact bilaterally, other (Upgoing toes on left, brisk reflexes at the bilateral patella), No weakness, No facial droop Psychiatric: interacting appropriately, not anxious, not encephalopathic, thought process linear ICD10 Worksheet Patient Problems: Problems Problem Status Diagnosed End stage renal disease Acute History of cirrhosis of liver Acute Hypoxemia Acute Lumbar compression fracture Acute Macrocytic anemia Acute Spinal stenosis of lumbar region Acute Thoracic compression fracture Acute Thrombocytopenia Acute
[2016-05-17] MEDS: ATORVASTATIN CALCIUM 40 MG TAB PO SCH (20:15)
[2016-05-17] MEDS: GABAPENTIN 100 MG CAP PO SCH (20:16)
[2016-05-17] MEDS: ALPRAZolam 0.5 MG TAB PO SCH (20:16)
[2016-05-17] MEDS: INSULIN GLARGINE 100 UNITS/ML SYRINGE SC SCH (20:22)
[2016-05-18 05:50] LABS: % IMMATURE GRANULYOCYTES 0.3 % (0.0-1.1); ABSOLUTE IMMATURE GRANULOCYTES 0.01 10^3/uL (0.00-0.10); ADD DIFF? NO; ADD MORPH? NO; ADD SCAN? NO; ATYPICAL LYMPHOCYTE FLAG 20 (0-99); FRAGMENT RBC FLAG 0 (0-99); HEMATOCRIT 26.7 % (40.0-51.0); HEMOGLOBIN 9.1 g/dL (13.7-17.5); LEFT SHIFT FLG 0 (0-99); LIPEMIA HEMOLYSIS FLAG 90 (0-99); MEAN CELL HEMOGLOBIN 38.2 pg (27.9-34.1); MEAN CELL HEMOGLOBIN CONCENTR. 34.1 g/dL (32.4-36.7); MEAN CELL VOLUME 112.2 fL (81.5-99.8); MEAN PLATELET VOLUME 9.6 fL (8.7-11.7); PLATELET CLUMPS FLAG 10 (0-99); RED BLOOD CELL COUNT 2.38 10^6/uL (4.40-6.38); RED CELL DISTRIBUTION WIDTH 15.6 % (11.5-15.2)
[2016-05-18 06:00] LABS: PLATELET COUNT 46 10^3/uL (150-400)
[2016-05-18 06:17] LABS: ANION GAP 6 mEq/L (8-16); CALCIUM 8.3 mg/dL (8.5-10.4); CARBON DIOXIDE 32 mEq/l (22-31); CHLORIDE 96 mEq/L (97-110); CREATININE 3.9 mg/dL (0.7-1.3); GLOMERULAR FILTRATION RATE 15; GLUCOSE 164 mg/dL (70-100); POTASSIUM 4.5 mEq/L (3.5-5.2); SODIUM 134 mEq/L (134-144)
[2016-05-18 07:18] LABS: PLATELET ESTIMATE DECREASED (ADEQ)
[2016-05-18] MEDS: oxyCODONE IR 5 MG TAB PO PRN ×3 (09:00→21:26)
[2016-05-18] MEDS: RIFAXIMIN 550 MG TAB PO SCH ×2 (09:01→21:26)
[2016-05-18] MEDS: PANTOPRAZOLE SODIUM 40 MG TAB PO SCH (09:01)
[2016-05-18] MEDS: NEPHROVITE FOLIC ACID/VIT B&C 1 TAB PO SCH (09:01)
[2016-05-18] MEDS: SENNOSIDES/DOCUSATE SODIUM TAB PO SCH (09:01)
[2016-05-18] MEDS: INSULIN LISPRO 100 UNIT/ML SC SCH ×3 (09:35→16:52)
--- NOTE | 2016-05-18 09:38 | SOAPPROG ---
MICHAEL Progress Note Assessment/Plan: Assessment:Plan: ESRD-plan for next Hd Thursday -he will need a little more ultrafiltration with his next treatment -will need Tipstops on AVF cannulation sites due to thrombocytopenia -he had no problems with bleeding yesterday Access-looks stable Back pain-per neurosurgery 05/18/16 09:36 Subjective: still with back and leg symptoms Objective: Vital Signs Temp Pulse Resp BP Pulse Ox 36.4 C 113 H 16 90/67 L 80 L 05/18/16 08:00 05/18/16 08:00 05/18/16 08:00 05/18/16 08:00 05/18/16 08:00 Laboratory Results 05/18/16 05:19 05/18/16 05:19 05/17/16 05/18/16 05/19/16 05:59 05:59 05:59 Intake Total 400 Output Total 600 Balance -200 PT 16.4 SEC (12.0-15.0) H 05/16/16 11:30 INR 1.32 (0.83-1.16) H 05/16/16 11:30 Physical Exam - Physical Exam General Appearance: alert, mild distress EENT: normal ENT inspection Neck: normal inspection Respiratory: crackles (at bases) Cardiac/Chest: regular rate, rhythm, systolic murmur Abdomen: normal bowel sounds, non-tender, soft Extremities: No swelling ICD10 Worksheet Patient Problems: Problems Problem Status Diagnosed End stage renal disease Acute History of cirrhosis of liver Acute Hypoxemia Acute Lumbar compression fracture Acute Macrocytic anemia Acute Spinal stenosis of lumbar region Acute Thoracic compression fracture Acute Thrombocytopenia Acute
--- NOTE | 2016-05-18 10:42 | NEUSURGPN ---
Assessment/Plan: HD#2 admitted with ?LE weakness and back pain. Has T12, L1, L4 severe compression fractures. MRI lumbar spine shows moderate canal stenosis, but no obvious nerve compression. The T-spine MRI again shows severe compression fx but no neural compression. - His platelets are 46k today - given his many cormorbidities and thrombocytopenia he is not a great surgical candidate - he is doing a little better today in terms of his pain - there is some concern that his slightly brisk reflexes in the legs are indicative of spinal cord compression, I do not see any signs of cord compression on the imaging and he does not have any clonus and has downgoing toes. I think this is more likely just to be baseline brisk reflexes. - I encouraged him to get up a bit today and we can see how he does with his back pain. - I am concerned that it will be difficult to keep his platelets high enough over a period of time that he can undergo kypoplasty safely - I discussed all of this with the patient, his , and his [id number] on the phone - we will follow along Subjective: back pain stable to slightly improved Objective: AAOx3 leg strength 5/5 at HF, KF/KE, PF/DF reflexes 3/4 at knee, 2/4 at ankle toes are downgoing, there is no clonus - Physician Patient Seen by Dr.: Arment[facility] Neurosurgery Physical Exam - Vitals, I&O, Labs I and O 05/17/16 05/18/16 05/19/16 05:59 05:59 05:59 Intake Total 400 Output Total 600 Balance -200 Weight 66 kg Intake: Oral (ml) 400 Output: Urine (ml) 600 Catheter 600 Other: Output Comment Catheter straight cath Vital Signs Temp Pulse Resp BP Pulse Ox 36.4 C 113 H 16 90/67 L 80 L 05/18/16 08:00 05/18/16 08:00 05/18/16 08:00 05/18/16 08:00 05/18/16 08:00 Laboratory Results 05/18/16 05:19 05/18/16 05:19 ICD10 Worksheet Patient Problems: Problems Problem Status Diagnosed End stage renal disease Acute History of cirrhosis of liver Acute Hypoxemia Acute Lumbar compression fracture Acute Macrocytic anemia Acute Spinal stenosis of lumbar region Acute Thoracic compression fracture Acute Thrombocytopenia Acute
--- NOTE | 2016-05-18 13:43 | HOSPPROG ---
Hospitalist Progress Note Assessment/Plan: Assessment: 65-year-old male presents with acute bilateral lower extremity paresis in the setting of acute thoracolumbar vertebral body compression fracture Plan: 1. Paresis. Acute, most likely secondary to thoracolumbar process, although overt cord compression not noted on CT or L-spine MRI. -motor 5/5 bilat LE today, ongoing brisk reflexes, unclear whether these are neuro sx from vert fxr vs. baseline -cont to engage w/ PT/OT to gauge level of activity 2. Thoracolumbar vertebral body compression fracture. Acute, present on MRI, resulting in significant amount of lower back pain as well as bilateral radiculopathy -interventional options currently include neurosurgery versus kyphoplasty -continue pain management strategies w/ oxy IR and introduced low-dose gabapentin w/ good effect -encouraged patient to see what levels of pain he has w/ transfers and ambulation, and see whether he is functionally limited by pain -d/w Dr. Rojas, she advises that kypho could be performed w/ IR if plts transfused to > 75k, anaesthesia is closely involved to provide minimal sedation , aspiration of L1 is performed -will coordinate w/ Drs. Ngo and Gisselle in AM to determine whether patient's pain/functional limitations warrant intervention vs. conservative mgmt 3. End-stage renal disease. Continue hemodialysis as scheduled -appreciate renal consultation 4. Thrombocytopenia. Secondary to chronic liver disease, will ultimately affect the decision not to proceed or not proceed with surgery -continue to monitor serum platelet level and consider platelet transfusion prior to surgical procedure given patient's low platelet count as well as high likelihood of some platelet dysfunction in the setting of end-stage renal disease 5. Cirrhosis. Chronic 6. Diabetes mellitus. Insulin dependent, continue on insulin sliding scale, A1c pending Diet. Renal, NPO after midnight in case procedure tomorrow Prophylaxis. High risk patient, heparin subcu on hold, SCDs Code. Full Disposition. Anticipated discharge uncertain at this time, anticipated length stay remains greater than 48 hours warranting inpatient admission status for acute paresis in the setting of thoracolumbar vertebral body compression fracture requiring surgical intervention but complicated by end-stage renal disease and thrombocytopenia. Subjective: Patient reports pain is improved with oxycodone as well as gabapentin which was initiated last night, patient has not been out of bed much , he has not moved his bowels Objective: Vital Signs Temp Pulse Resp BP Pulse Ox 37.2 C 83 16 128/58 H 97 05/18/16 12:44 05/18/16 12:44 05/18/16 12:44 05/18/16 12:44 05/18/16 12:44 Laboratory Results 05/18/16 05:19 05/18/16 05:19 05/17/16 05/18/16 05/19/16 05:59 05:59 05:59 Intake Total 400 Output Total 600 Balance -200 PT 16.4 SEC (12.0-15.0) H 05/16/16 11:30 INR 1.32 (0.83-1.16) H 05/16/16 11:30 - Time Spent With Patient Time Spent with Patient: greater than 35 minutes Time Spent with Patient: Greater than 35 minutes spent on this patients care, greater than 50% of time spent counseling, educating, and coordinating care regarding the above mentioned plan. - Physical Exam Constitutional: no apparent distress, not in pain, chronically ill appearing Cardiovascular: systolic murmur (2/6 systolic), edema (Trace bilateral lower extremities), No irregularly irregular, No tachycardia Respiratory: no respiratory distress, no rales or rhonchi, clear to auscultation Gastrointestinal: normoactive bowel sounds, soft, non-tender abdomen, no palpable masses Musculoskeletal: full muscle strength (Bilateral lower extremities) Neurologic: AAOx3, sensation intact bilaterally Psychiatric: interacting appropriately, not anxious, not encephalopathic, thought process linear ICD10 Worksheet Patient Problems: Problems Problem Status Diagnosed End stage renal disease Acute History of cirrhosis of liver Acute Hypoxemia Acute Lumbar compression fracture Acute Macrocytic anemia Acute Spinal stenosis of lumbar region Acute Thoracic compression fracture Acute Thrombocytopenia Acute
[2016-05-18] MEDS ORDERED: POLYETHYLENE GLYCOL 3350 17 GM PKT PO ONE (13:44)
[2016-05-18] MEDS ORDERED: POLYETHYLENE GLYCOL 3350 17 GM PKT PO PRN (13:44)
--- NOTE | 2016-05-18 21:11 | IR ---
Interventional Consult Relevant History: Patient is a 65-year-old male presenting to the emergency room with bilateral lower extremity paresis and a severe low back pain. MRI of the thoracic and the lumbar spines show acute c ompression at L4, L1, and T12. The degree of compression is severe, especially at T12 and L4. There i s no significant retropulsion of fragmented T12. There is mild retropulsion of fragment at L1 and a s mall posterior central fragment at L4. Overall, the degree of canal compromise, which is moderate at T12-L1, is caused by a combination of mild retropulsed fragments, and pre-existing degenerative facet disease and mild disk disease. This is also true at L3-L4 with focal mild to moderate canal compromi se. Both neurology and neurosurgical services have been consulted. Patient does have hyperreflexia. Howev er, there is no focal cord compression discernible on MRI. No cord edema. No particular level of jarrett re canal compromise. There is a large cavity in the body of L1 that is fluid-filled. There is very little bone construct w ithin this body. T12 and L4 are not associated with cystic cavities. There is no definite focal milton inal stenosis or significant nerve impingement. Past Medical History: Significant for thrombocytopenia, end-stage renal disease, cirrhosis, diabetes, and hypertension. Relevant Labs: Today his hemoglobin is 9.1, hematocrit 26.7, and platelet count 46. From May 16, 2016 his INR is 1.3 and PTT 36.9. Physical Exam: Indeed, the patient has severe low back pain, worst with movement. He has not yet been able to wean significantly off of his pain medications, which includes Dilaudid and oxycodone. Patie nt reports pain at 8-9 out of 10. Consultation: In summary, my understanding of the existing specialty impressions for this case are th at there are no particular anatomic explanations for hyperreflexia and baseline hyperreflexia for wha tever reason is a possibility. He does not have cord compression or severe canal stenosis, despite th e presence of compression fracture and degenerative disease in his thoracolumbar spine based on MRI. He is considered overall a poor neurosurgical candidate because of the multiple comorbidities and low platelet count. I have discussed the above case with Dr. Titus Armenta today. My understanding of the n eurosurgical approach is fluoroscopic guidance in the operating room under general anesthesia with ei ther kyphoplasty alone, likely bi-pedicular approach or kyphoplasty +/- laminectomy for decompression at the same time. From the interventional standpoint, this patient would be done with minimal sedation/no general anest hesia, uni-pedicular approach using biplane fluoroscopy in interventional radiology. I would get ane sthesia involved, however, for airway management, but would still perform the procedure with minimal sedation/local anesthesia only. T12 and L4 are straight for percutaneous candidates. At L1, given th e pre-existing retropulsed fragment and the amount of cystic replacement within the vertebral body, t here is increased risk at this particular level of additional canal compromise with cement injection. Consideration might be made towards aspirating the fluid within the vertebral body first, prior to injecting cement. He does not have, from what I can tell on MRI, a definitive pedicle fracture at any level and transpe dicular approach is still amenable at all levels. Extrapedicular approach is also feasible at all lev els. For the low platelet count, today at 40s, he would need to be transfused just prior to the procedure until his platelet count is above 75. We will need to coordinate with anesthesia, who will need to be readily available once his platelet count is above 75. As for his multiple comorbidities, lack of general anesthesia and using a uni-pedicular approach to s peed up the overall procedure might be well tolerated for this patient. If he were to sustain clinically significant spinal canal compression from percutaneous kyphoplasty, and again I would particularly be worried about L1, and surgery is needed, then surgical laminectomy for decompression might be an option at that point.. This is at least my understanding from my discus theresa with Dr. Armenta today. Additional consideration would need to be made towards alternating between balloon kyphoplasty and ca vity augmentation by other methods in this patient during the procedure. This is because of the anato mically different nature of how T12, L1, and L4 are compressing based on MRI findings. These consider ations can minimize cement extravasation and canal compromise. In summary, my assessment of the overall situation and what IR can offer are the followin. L1 in my opinion is the level of highest risk with kyphoplasty. 2. T12 and L4 are straight forward percutaneous candidates. These can be taking care of, which might alleviate some pain, even if nothing is done to L1. 3. Most likely uni-pedicular approach can be accomplished at all levels. 4. Would propose minimal sedation/local anesthetics only with the anesthesia team involved, given hi s medical comorbidities. 5. Consider cyst aspiration at L1 prior to cement injection. 6. Consider balloon kyphoplasty versus other augmentation methods at various levels prior to injecti on of cement. 7. If worsening canal compromise occurs after kyphoplasty at L1, patient may be a surgical decompres sive laminectomy candidate at that time. 8. Will need platelet transfusion prior to procedure. Will need to coordinate with anesthesia team, who will need to be readily available once his platelet count is adequate (>75). Therefore, I will leave it up to the discretion of all the subspecialty teams involved in the care of this patient to determine whether the patient is best served by percutaneous approach first, laminec jessica only if needed, or neurosurgical involvement right off the bat with the kyphoplasty procedure, w hile maintaining the option of decompressive laminectomy at the same time, if surgically needed. Thank you very much for involving interventional radiology in the care of this patient. Total face-to -face consultation was 45 minutes. The above has been discussed with Dr. David and Dr. Titus Armenta. Trudi Pitts is on the service tomorrow and I will pass this along to him. Crosscutting Measure: Patient's current list of medications including all known prescriptions, over- the-counters, herbals, and vitamin/mineral/dietary supplements are reviewed. Medications' name, dosa ge, frequency, and route of administration are confirmed. Patient is a nonsmoker.
[2016-05-18] MEDS: INSULIN GLARGINE 100 UNITS/ML SYRINGE SC SCH (21:24)
[2016-05-18] MEDS: ATORVASTATIN CALCIUM 40 MG TAB PO SCH (21:24)
[2016-05-18] MEDS: ALPRAZolam 0.5 MG TAB PO SCH (21:24)
[2016-05-18] MEDS: GABAPENTIN 100 MG CAP PO SCH (21:24)
[2016-05-18] MEDS: METOPROLOL TARTRATE 25 MG TAB PO SCH (21:25)
[2016-05-19 03:23] LABS: HEMOGLOBIN A1C 4.8 % (4.0-6.0)
[2016-05-19 05:07] LABS: % IMMATURE GRANULYOCYTES 0.2 % (0.0-1.1); ABSOLUTE IMMATURE GRANULOCYTES 0.01 10^3/uL (0.00-0.10); ADD DIFF? NO; ADD MORPH? NO; ADD SCAN? NO; ATYPICAL LYMPHOCYTE FLAG 10 (0-99); FRAGMENT RBC FLAG 0 (0-99); HEMATOCRIT 26.6 % (40.0-51.0); HEMOGLOBIN 8.9 g/dL (13.7-17.5); LEFT SHIFT FLG 0 (0-99); LIPEMIA HEMOLYSIS FLAG 80 (0-99); MEAN CELL HEMOGLOBIN 37.9 pg (27.9-34.1); MEAN CELL HEMOGLOBIN CONCENTR. 33.5 g/dL (32.4-36.7); MEAN CELL VOLUME 113.2 fL (81.5-99.8); MEAN PLATELET VOLUME 9.3 fL (8.7-11.7); PLATELET CLUMPS FLAG 0 (0-99); RED BLOOD CELL COUNT 2.35 10^6/uL (4.40-6.38); RED CELL DISTRIBUTION WIDTH 15.5 % (11.5-15.2)
[2016-05-19 05:21] LABS: PLATELET COUNT 46 10^3/uL (150-400)
[2016-05-19 05:26] LABS: ANION GAP 5 mEq/L (8-16); CALCIUM 8.1 mg/dL (8.5-10.4); CARBON DIOXIDE 32 mEq/l (22-31); CHLORIDE 97 mEq/L (97-110); CREATININE 6.3 mg/dL (0.7-1.3); GLOMERULAR FILTRATION RATE 9; GLUCOSE 133 mg/dL (70-100); POTASSIUM 4.5 mEq/L (3.5-5.2); SODIUM 134 mEq/L (134-144)
[2016-05-19] MEDS: oxyCODONE IR 5 MG TAB PO PRN (05:29)
[2016-05-19 06:08] LABS: PLATELET ESTIMATE DECREASED (ADEQ)
--- NOTE | 2016-05-19 07:35 | SOAPPROG ---
SOAP Progress Note Assessment/Plan: Assessment: 65 yo M with back pain that is likely related to multiple compression fractures Plan: stable plan for IR to do L1, L4 and possible T12 kyphoplasty PT/OT please call with neuro changes discussed with Dr Armenta 05/19/16 07:32 Subjective: continued back pain, no leg pain Objective: Vital Signs Temp Pulse Resp BP Pulse Ox 37 C 70 14 115/50 L 100 05/19/16 04:00 05/19/16 04:00 05/19/16 04:00 05/19/16 04:00 05/19/16 04:00 Laboratory Results 05/19/16 04:45 05/19/16 04:45 05/18/16 05/19/16 05/20/16 05:59 05:59 05:59 Intake Total 400 300 Output Total 600 Balance -200 300 PT 16.4 SEC (12.0-15.0) H 05/16/16 11:30 INR 1.32 (0.83-1.16) H 05/16/16 11:30 AAOx4, +FC PERRL, EOMI, no facial droop 5/5 +light touch ICD10 Worksheet Patient Problems: Problems Problem Status Diagnosed End stage renal disease Acute History of cirrhosis of liver Acute Hypoxemia Acute Lumbar compression fracture Acute Macrocytic anemia Acute Spinal stenosis of lumbar region Acute Thoracic compression fracture Acute Thrombocytopenia Acute
[2016-05-19] MEDS: INSULIN LISPRO 100 UNIT/ML SC SCH ×3 (09:38→22:00)
[2016-05-19] MEDS: NEPHROVITE FOLIC ACID/VIT B&C 1 TAB PO SCH (10:52)
[2016-05-19] MEDS: RIFAXIMIN 550 MG TAB PO SCH ×2 (10:53→23:25)
[2016-05-19] MEDS: PANTOPRAZOLE SODIUM 40 MG TAB PO SCH (10:53)
[2016-05-19] MEDS: SENNOSIDES/DOCUSATE SODIUM TAB PO SCH (10:53)
--- NOTE | 2016-05-19 11:14 | SOAPPROG ---
MIHCAEL Progress Note Assessment/Plan: Assessment/Plan: ESRD: on HD TTS. - Will do HD tomorrow per routine. HTN: BP at goal on current meds. Subjective: No acute events overnight. Plan for kyphoplasty today. Objective: Vital Signs Temp Pulse Resp BP Pulse Ox 37.1 C 72 17 138/58 H 94 05/19/16 08:00 05/19/16 08:00 05/19/16 08:00 05/19/16 08:00 05/19/16 08:00 Laboratory Results 05/19/16 04:45 05/19/16 04:45 05/18/16 05/19/16 05/20/16 05:59 05:59 05:59 Intake Total 400 300 Output Total 600 Balance -200 300 PT 16.4 SEC (12.0-15.0) H 05/16/16 11:30 INR 1.32 (0.83-1.16) H 05/16/16 11:30 General: alert and oriented, no acute distress Eyes: EOMI, PERRL OP: Clear CV: RRR Resp: CTA bilat, nonlabored respirations Abd: Soft, NT/ND Ext: no edema Neuro: CN II-XII grossly intact Psych: cooperative, appropriate mood and affect Access: LUE AVF with thrill and bruit appreciated ICD10 Worksheet Patient Problems: Problems Problem Status Diagnosed End stage renal disease Acute History of cirrhosis of liver Acute Hypoxemia Acute Lumbar compression fracture Acute Macrocytic anemia Acute Spinal stenosis of lumbar region Acute Thoracic compression fracture Acute Thrombocytopenia Acute
[2016-05-19] MEDS ORDERED: DEXAMETHASONE 10 MG/ML VIAL IVP ONE ×3 (12:23→13:00)
[2016-05-19] MEDS ORDERED: ceFAZolin 2 GM/DEXTROSE 100 ML IV ONE ×2 (12:23→13:00)
[2016-05-19] MEDS ORDERED: NS 1,000 ML IV ONE (12:30)
[2016-05-19] MEDS ORDERED: NS 1,000 ML IV SCH (12:30)
--- NOTE | 2016-05-19 12:37 | SOAPPROG ---
MICHAEL Progress Note Assessment/Plan: Assessment: Multiple thoracolumbar compression fractures. Patient bedridden by pain. Plan: Vertebral augmentation/kyphoplasty of T12, L1, L4. Platelet transfusion given. Nephrology input re: Rx for osteoporosis. 05/19/16 12:33 Subjective: Reviewed medical records and discussed care with Dr. David, Dr. Ngo, and Dr. Rojas. The patient and his understand multi-level kyphoplasty, accept risks (lack of pain relief, infection, internal bleeding, allergy, new fracture elsewhere, and embolization of cement causing nerve irritation or pulmonary embolism), and wish to proceed today. Objective: Platelets 46K early this morning. Platelet transfusion received--5 pack. Vital Signs Temp Pulse Resp BP Pulse Ox 37.1 C 72 17 138/58 H 94 05/19/16 08:00 05/19/16 08:00 05/19/16 08:00 05/19/16 08:00 05/19/16 08:00 Laboratory Results 05/19/16 04:45 05/19/16 04:45 05/18/16 05/19/16 05/20/16 05:59 05:59 05:59 Intake Total 400 300 Output Total 600 Balance -200 300 PT 16.4 SEC (12.0-15.0) H 05/16/16 11:30 INR 1.32 (0.83-1.16) H 05/16/16 11:30 ICD10 Worksheet Patient Problems: Problems Problem Status Diagnosed End stage renal disease Acute History of cirrhosis of liver Acute Hypoxemia Acute Lumbar compression fracture Acute Macrocytic anemia Acute Spinal stenosis of lumbar region Acute Thoracic compression fracture Acute Thrombocytopenia Acute
[2016-05-19 13:47] LABS: INR 1.39 (0.83-1.16)
[2016-05-19 13:48] LABS: APTT 37.7 SEC (23.0-38.0)
--- NOTE | 2016-05-19 14:10 | HOSPPROG ---
Hospitalist Progress Note Assessment/Plan: Assessment: 65-year-old male presents with acute bilateral lower extremity paresis in the setting of acute thoracolumbar vertebral body compression fracture Plan: 1. Paresis. Acute, most likely secondary to thoracolumbar process, although overt cord compression not noted on CT or L-spine MRI. -motor 5/5 bilat LE today, ongoing brisk reflexes, unclear whether these are neuro sx from vert fxr vs. baseline -cont to engage w/ PT/OT 2. Thoracolumbar vertebral body compression fracture. Acute, present on MRI, resulting in significant amount of lower back pain as well as bilateral radiculopathy -continue pain management strategies w/ oxy IR and introduced low-dose gabapentin w/ good effect -d/w Dr. Pitts, plan for kyphoplasty today 3. End-stage renal disease. Continue hemodialysis as scheduled -appreciate renal consultation, get HD tomorrow 4. Thrombocytopenia. Secondary to chronic liver disease -give platelet transfusion today prior to kypho, monitor for volume overload 5. Cirrhosis. Chronic 6. Diabetes mellitus. Insulin dependent, continue on insulin sliding scale, A1c pending Diet. Renal, NPO after midnight Prophylaxis. High risk patient, heparin subcu on hold, SCDs Code. Full Disposition. Anticipated discharge uncertain at this time, kypho today and functional status post-procedurely will determine level of care Subjective: Patient reports that the pain is constant and similar to yesterday Objective: Vital Signs Temp Pulse Resp BP Pulse Ox 37.1 C 72 15 117/55 L 98 05/19/16 08:00 05/19/16 12:25 05/19/16 12:25 05/19/16 12:25 05/19/16 12:25 Laboratory Results 05/19/16 04:45 05/19/16 04:45 05/18/16 05/19/16 05/20/16 05:59 05:59 05:59 Intake Total 400 300 Output Total 600 Balance -200 300 PT 17.0 SEC (12.0-15.0) H 05/19/16 13:25 INR 1.39 (0.83-1.16) H 05/19/16 13:25 - Physical Exam Constitutional: no apparent distress, not in pain, chronically ill appearing, uncomfortable Cardiovascular: systolic murmur (2/6 at the sternum), edema (Trace bilateral lower extremity), No irregularly irregular, No tachycardia Respiratory: no respiratory distress, no rales or rhonchi, clear to auscultation , other (Poor inspiratory effort) Gastrointestinal: soft, non-tender abdomen, no palpable masses, No normoactive bowel sounds (Hypoactive), No distension Psychiatric: not anxious, not encephalopathic, thought process linear, flat affect (Fatigued but arousable), No agitated ICD10 Worksheet Patient Problems: Problems Problem Status Diagnosed End stage renal disease Acute History of cirrhosis of liver Acute Hypoxemia Acute Lumbar compression fracture Acute Macrocytic anemia Acute Spinal stenosis of lumbar region Acute Thoracic compression fracture Acute Thrombocytopenia Acute
[2016-05-19] MEDS ORDERED: oxyCODONE IR 5 MG TAB PO PRN (14:11)
[2016-05-19] MEDS ORDERED: FLUMAZENIL 0.5 MG/5 ML MDV IVP ONE (14:38)
[2016-05-19] MEDS ORDERED: fentaNYL 100 MCG/2 ML INJ ONE ×2 (14:38→15:36)
[2016-05-19] MEDS ORDERED: MIDAZOLAM 2 MG/2 ML VIAL ONE (14:38)
[2016-05-19] MEDS ORDERED: NALOXONE HCL 0.4 MG/ML INJ ONE (14:38)
[2016-05-19] MEDS ORDERED: PROPOFOL 200 MG/20 ML VIAL ONE ×2 (15:36)
[2016-05-19] MEDS ORDERED: SUCCINYLCHOLINE CHLORIDE*ANESTHESIA ONLY*200 MG/10 ML SYR IVP ONE (15:38)
[2016-05-19] MEDS ORDERED: PHENYLEPHRINE HCL 100 MCG/ML SYR ONE (15:39)
[2016-05-19] MEDS ORDERED: LIDOCAINE 2% 100 MG/5 ML SYR IVP ONE (15:39)
[2016-05-19] MEDS ORDERED: epHEDrine SULFATE 10 MG/ML SYR ONE (16:32)
[2016-05-19] MEDS ORDERED: LIDOCAINE 1% 30 ML SDV ONE (16:39)
[2016-05-19] MEDS ORDERED: BUPIVACAINE 0.5% 30 ML SDV ONE (16:39)
--- NOTE | 2016-05-19 17:41 | POSTOPPROG ---
Post Op Note Date of Operation: 05/19/16 Surgeon: Ananda Pitts Anesthesiologist: Caty Anesthesia: GET(General Endotracheal) Pre-op Diagnosis: Multilevel thoracolumbar compression fractures Post-op Diagnosis: same Indication: Debilitating pain Procedure: Three level thoracolumbar vertebral augmentation Findings: T12, L1, L4 treated. Inf/Abcess present in the surg proc area at time of surgery?: No EBL: Minimal Complications: 0
[2016-05-19] MEDS: HYDROmorphONE/DILAUDID 1 MG/ML SYR IVP PRN (21:53)
[2016-05-19] MEDS: ALPRAZolam 0.5 MG TAB PO SCH (23:04)
[2016-05-19] MEDS: ATORVASTATIN CALCIUM 40 MG TAB PO SCH (23:05)
[2016-05-19] MEDS: GABAPENTIN 100 MG CAP PO SCH (23:05)
[2016-05-19] MEDS: INSULIN GLARGINE 100 UNITS/ML SYRINGE SC SCH (23:20)
[2016-05-19] MEDS: METHOCARBAMOL 500 MG TAB PO SCH (23:23)
[2016-05-19] MEDS: METOPROLOL TARTRATE 25 MG TAB PO SCH (23:24)
[2016-05-20 05:29] LABS: % IMMATURE GRANULYOCYTES 0.1 % (0.0-1.1); ABSOLUTE IMMATURE GRANULOCYTES 0.01 10^3/uL (0.00-0.10); ADD DIFF? NO; ADD MORPH? NO; ADD SCAN? NO; ATYPICAL LYMPHOCYTE FLAG 0 (0-99); FRAGMENT RBC FLAG 0 (0-99); HEMATOCRIT 29.1 % (40.0-51.0); LEFT SHIFT FLG 30 (0-99); LIPEMIA HEMOLYSIS FLAG 90 (0-99); MEAN CELL HEMOGLOBIN 38.5 pg (27.9-34.1); MEAN CELL HEMOGLOBIN CONCENTR. 34.4 g/dL (32.4-36.7); MEAN CELL VOLUME 111.9 fL (81.5-99.8); MEAN PLATELET VOLUME 10.1 fL (8.7-11.7); PLATELET CLUMPS FLAG 10 (0-99); PLATELET COUNT 68 10^3/uL (150-400); RED CELL DISTRIBUTION WIDTH 15.3 % (11.5-15.2)
[2016-05-20] MEDS: METHOCARBAMOL 500 MG TAB PO SCH (05:32)
[2016-05-20 05:55] LABS: ANION GAP 12 mEq/L (8-16); CALCIUM 7.6 mg/dL (8.5-10.4); CARBON DIOXIDE 28 mEq/l (22-31); CHLORIDE 98 mEq/L (97-110); GLOMERULAR FILTRATION RATE 7; GLUCOSE 94 mg/dL (70-100); POTASSIUM 4.9 mEq/L (3.5-5.2); SODIUM 138 mEq/L (134-144)
[2016-05-20 06:00] LABS: CREATININE 7.8 mg/dL (0.7-1.3)
--- NOTE | 2016-05-20 08:09 | NEUSURGPN ---
Assessment/Plan: Assessment: 65 yo M with back pain that is likely related to multiple compression fractures Plan: stable s/p IR T12, L1, L4 vertebroplasty yesterday States pain improved this AM, sleepy D/w patient's PT/OT please call with neuro changes discussed with Dr Armenta NS will sign off and follow peripherally Patient likely to need rehab Subjective: Pt resting in bed, sleeping. at bedside. Patient denies back pain. Objective: Sleeping but awakens easily NAD VSS Somewhat uncooperative with exam but motor 5/5 BLE for pf/df/ehl - would not leg me test hip flex/ex +LT Urinary Catheter in Place: No - Physician Discussed Patient with : Kathi Neurosurgery Physical Exam - Vitals, I&O, Labs I and O 05/19/16 05/20/16 05/21/16 05:59 05:59 05:59 Intake Total 300 0 Output Total 0 0 Balance 300 0 0 Intake: Oral (ml) 300 0 Output: Urine (ml) 0 0 Urinal 0 0 Other: Bladder Scan Volume (ml) Catheter 165 Urinal 160 374 Vital Signs Temp Pulse Resp BP Pulse Ox 38.2 C 86 18 119/58 L 97 05/20/16 07:43 05/20/16 07:43 05/20/16 07:43 05/20/16 07:43 05/20/16 07:43 Laboratory Results 05/20/16 04:46 05/20/16 04:46 ICD10 Worksheet Patient Problems: Problems Problem Status Diagnosed End stage renal disease Acute History of cirrhosis of liver Acute Hypoxemia Acute Lumbar compression fracture Acute Macrocytic anemia Acute Spinal stenosis of lumbar region Acute Thoracic compression fracture Acute Thrombocytopenia Acute
[2016-05-20] MEDS: INSULIN LISPRO 100 UNIT/ML SC SCH ×3 (08:27→17:31)
--- NOTE | 2016-05-20 08:58 | DX ---
Portable Chest, Single View May 20, 2016 History: Shortness of breath. Comparison: May 16, 2016. Findings: Poor inspiratory effort. Opacification of both lung bases more predominant on the right jeremy n the left which could represent atelectasis and/or infiltrate. There also appears to be a right pleu ral effusion. Mild interstitial prominence is seen bilaterally and pulmonary vascular congestion. Hea rt size is enlarged and stable. Evidence of kyphoplasty at the thoracolumbar junction. Impression: Findings suggesting underlying congestive heart failure with cardiomegaly, pulmonary vasc ular congestion, and pulmonary edema. Atelectasis or possible infiltrate right lower lobe and right p leural effusion.
--- NOTE | 2016-05-20 10:12 | IR ---
Vertebral Augmentation/Kyphoplasty of T12, L1, and L4 History: Patient bedridden with severe pain. Multiple compression fractures, worst at L1. Consent: Risks and benefits of the procedure were discussed in detail, and informed consent was obtai french. Medications: General endotracheal anesthesia by Dr. Byrne. Fluoroscopy time in minutes: 3.1 AP, 2.8 lateral. Estimated exposure in milligray: 440. Technique: With the patient prone, the back was prepped and draped in sterile fashion. 0.5% bupivacai ne was used for periosteal anesthetic through a 22-gauge spinal needle. At each of the 3 levels, ivory spedicular 10-gauge needles were advanced into vertebral bodies. Straight osteotomes and reticulating osteotome were used for cavity creation at each level. Sterile methyl methacrylate, opacified with b arium powder, was prepared in usual fashion, instilled into each vertebra using the IQcard p ower injector, with radiofrequency activation of cement to maximize viscosity. At T12 and L4, a secon d, right transpedicular needle had to be placed to optimize dispersion of cement. 4 mL of cement were placed in T12, 5 mL at L1, and 4 mL at L4. Stylettes were reinserted into each bone needle and the n eedles were removed. Multiple biplane spot images were obtained during the procedure. The patient was taken to postanesthesia care unit in stable condition. Complication: None. Findings: Compression deformity and kyphosis are most severe at T12. Good dispersion of cement at eac h level. At L4, cement passes through a gap in the superior cortical endplate to reach the interspace at L3-L4. Postkyphoplasty images of L1 are lacking. Impression: Vertebral augmentation/kyphoplasty of T12, L1, and L4. Comment: I have ordered a CT of the lumbar spine in order to better assess distribution of cement and to document the position of cement in L1, in particular. - - - - - - - - - - - - - - - - - - - - - - - - - - - - - (PQRS measures: Current medications were listed in the medical record, including all known prescripti ons, ljwo-eyx-ryobeuw medications, herbal medications, and nutritional supplements. Tobacco use: None . Prophylactic antibiotic: Ancef 1 gm intravenously was given within 4 hours before the procedure and then discontinued. VTE prophylaxis: Unnecessary.)
[2016-05-20] MEDS ORDERED: EPOETIN ALFA 10,000 UNIT/ML VIAL SC SCH (11:00)
[2016-05-20] MEDS ORDERED: VANCOMYCIN HCL/NORMAL SALINE 250 ML IV ONE (11:00)
--- NOTE | 2016-05-20 11:10 | SOAPPROG ---
SOAP Progress Note Assessment/Plan: Assessment: 1. ESRD HD due today. Will transfer to ICU. BP soft. Assess closely during run. 2. MS Decreased. Checking ABG, starting bipap. This could be med related. Will transfer to ICU. 3. Pulmonary CHF +/- aspiration. On antibiotics. To go on BIPAP. Given SBP, doubt this is all due to inc'd LVEDP. 4. s/p multiple kyphoplasties Plan: 05/20/16 11:06 05/20/16 11:17 Objective: Vital Signs Temp Pulse Resp BP Pulse Ox 38.2 C 85 18 100/46 L 98 05/20/16 07:43 05/20/16 09:25 05/20/16 07:43 05/20/16 09:25 05/20/16 09:25 Laboratory Results 05/20/16 04:46 05/20/16 04:46 05/19/16 05/20/16 05/21/16 05:59 05:59 05:59 Intake Total 300 0 Output Total 0 0 Balance 300 0 0 PT 17.0 SEC (12.0-15.0) H 05/19/16 13:25 INR 1.39 (0.83-1.16) H 05/19/16 13:25 Physical Exam - Physical Exam General Appearance: obtunded Respiratory: decreased breath sounds Cardiac/Chest: regular rate, rhythm Extremities: normal inspection Neuro/Psych: disoriented to person, disoriented to place, disoriented to time ICD10 Worksheet Patient Problems: Problems Problem Status Diagnosed End stage renal disease Acute History of cirrhosis of liver Acute Hypoxemia Acute Lumbar compression fracture Acute Macrocytic anemia Acute Spinal stenosis of lumbar region Acute Thoracic compression fracture Acute Thrombocytopenia Acute
[2016-05-20] MEDS ORDERED: ALBUMIN 25% 100 ML IV ONE (11:11)
[2016-05-20 11:23] LABS: BICARBONATE 27 mEq/L (22-26); MEASURED OXYGEN SATURATION 98 % (92-95); PCO2 53 mmHg (34-38); PO2 97 mmHg (65-75); TCO2 29 mEq/L (23-27)
[2016-05-20] MEDS: PIPERACILLIN/TAZO 2.25 GM/DEX 50 ML IV SCH ×2 (11:41→21:30)
[2016-05-20] MEDS: VANCOMYCIN 1 GM in NS 250 ML IV ONE ×2 (11:41→16:02)
[2016-05-20] MEDS: PANTOPRAZOLE SODIUM 40 MG TAB PO SCH ×2 (11:56→16:09)
[2016-05-20] MEDS: NEPHROVITE FOLIC ACID/VIT B&C 1 TAB PO SCH (11:56)
--- NOTE | 2016-05-20 11:56 | CPEKG ---
Heart Rate: 85 RR Interval: 706 P-R Interval: 120 QRSD Interval: 84 QT Interval: 380 QTC Interval: 452 P Long[place]: 33 QRS [place]: 22 T Wave [place]view: 53 EKG Severity - NORMAL ECG - EKG Impression: SINUS RHYTHM Electronically Signed By: Renetta Lindquist 20-May-2016 12:39:15
[2016-05-20] MEDS: RIFAXIMIN 550 MG TAB PO SCH ×2 (11:57→21:30)
[2016-05-20] MEDS: SENNOSIDES/DOCUSATE SODIUM TAB PO SCH (11:57)
[2016-05-20 14:44] LABS: TROPONIN I 0.102 ng/mL (0-0.034)
[2016-05-20] MEDS ORDERED: DILTIAZEM 25 MG/5 ML VIAL IVP ONE (16:00)
[2016-05-20] MEDS ORDERED: PIPERACILLIN SODIUM IV SCH (16:00)
[2016-05-20] MEDS ORDERED: D5W IV SCH (16:00)
[2016-05-20] MEDS ORDERED: TAZOBACTAM IV SCH (16:00)
--- NOTE | 2016-05-20 16:21 | HOSPPROG ---
Hospitalist Progress Note Assessment/Plan: Assessment: 65-year-old male presents with acute bilateral lower extremity paresis in the setting of acute thoracolumbar vertebral body compression fracture, s/p kyphoplasty, c/b acute hypercapnic respiratory failure and possible aspiration pneumonia Plan: # Hypercapnic respiratory failure. Acute, evidenced by pCO2 50s w/ pH 7.32 w/ visible tachypnea and labored breathing, most likely 2/2 acute dCHF in setting of ESRD, as well as possible aspiration pneumonia -repeat ABG this afternoon -required BiPAP for stabilization, transfer to SDU -get urgent HD for volume removal # Acute diastolic CHF exacerbation. Evidenced by interstitial infiltrates on CXR w/ volume received on 05/19 (platelets) + pulmonary symptoms and resp failure -BiPAP -dialysis -monitor strict I/O -send trop # Atrial fibrillation w/ RVR. Acute, provoked by HD volume shift and acute illness -give dilt 5mg IV now for HR 120s, SBP 100s -monitor HR on tele # Possible aspiration pneumonia. Evidenced by RLL infiltrate/effusion on CXR ( personally interpreted) + fever + poor mentation/strength and aspiration risk -TELEVISION MAINTENANCE MAN eval, currently NPO -start renally dosed zosyn, given one dose vanco -repeat CBC in AM, get BCx now -monitor fever curve # Paresis. Acute, most likely secondary to a combination of thoracolumbar process and deconditioning, although overt cord compression not noted on CT or L -spine MRI. -will gauge strength once he is medically improved # End-stage renal disease. Continue hemodialysis as scheduled -d/w Dr. Page, goal to remove more volume w/ HD today, appreciate renal consultation # Thrombocytopenia. Secondary to chronic liver disease -given platelet transfusion today prior to kypho # Cirrhosis. Chronic -restart lactulose and check serum ammonium level given poor mentation # Diabetes mellitus. Insulin dependent, continue on insulin sliding scale, A1c pending # Suspected acute osteoporotic vertebral compression fractures. In the setting of ESRD on HD, & IDDM, MRI w/ compr. fx's w/ assoc./edema at T12, L1 & L4 -s/p kypho from 05/19 Diet. NPO, TELEVISION MAINTENANCE MAN swallow eval, Renal diet if passes swallow eval Prophylaxis. High risk patient, heparin sc Code. Full, MPOA Disposition. Anticipated discharge uncertain at this time, plan on SNF vs. LTAC at discharge 50 minutes of critical care time spent w/ patient face to face, from 11:00-11: 50 a.m., addressing issues above, remains high risk morbidity/mortality. Subjective: patient somnolent this AM, reported L side chest pain Objective: Vital Signs Temp Pulse Resp BP Pulse Ox 37.6 C 143 H 13 123/47 H 97 05/20/16 11:30 05/20/16 15:47 05/20/16 11:59 05/20/16 11:59 05/20/16 11:59 Laboratory Results 05/20/16 04:46 05/20/16 04:46 05/19/16 05/20/16 05/21/16 05:59 05:59 05:59 Intake Total 300 0 Output Total 0 0 Balance 300 0 0 PT 17.0 SEC (12.0-15.0) H 05/19/16 13:25 INR 1.39 (0.83-1.16) H 05/19/16 13:25 ICD10 Worksheet Patient Problems: Problems Problem Status Diagnosed End stage renal disease Acute History of cirrhosis of liver Acute Hypoxemia Acute Lumbar compression fracture Acute Macrocytic anemia Acute Spinal stenosis of lumbar region Acute Thoracic compression fracture Acute Thrombocytopenia Acute
--- NOTE | 2016-05-20 16:40 | GCON ---
[f rep st] CONSULTATION DATE OF CONSULTATION: 05/20/2016 REFERRING PHYSICIAN: Yyao David MD PULMONARY AND CRITICAL CARE CONSULTATION: REASON FOR REFERRAL: Evaluation and management of hypoxemic and hypercapnic respiratory failure. HISTORY: The patient is a 65-year-old gentleman with history of end-stage renal disease on hemodialysis, who has multiple vertebral compression fractures with increased pain and was referred to the emergency department for evaluation. He also had some lower extremity weakness. This was felt to be due to severe compression fractures with significant spinal stenosis. Due to thrombocytopenia, the patient was not felt to be a good surgical candidate, so he underwent a multilevel kyphoplasty yesterday. Today, he was disoriented and obtunded. Today was his usual dialysis day. He placed on BiPAP and transferred to the ICU for closer observation and then started on hemodialysis. They were able to get a liter off and he became more awake and alert; however, he then went into atrial fibrillation with a rapid ventricular response with a rate of about 120-130 beats per minute. The patient is currently asymptomatic with no chest pain, shortness of breath, or cough. He does not feel lightheaded. He is hungry. He denies pain currently. PAST MEDICAL HISTORY: 1. End-stage renal disease, on hemodialysis. 2. Cirrhosis. 3. Chronic thrombocytopenia. 4. Insulin-dependent diabetes. 5. Hypertension. 6. Compression fractures. 7. Gastroesophageal reflux disease. MEDICATIONS: At the time of admission include lactulose, Nexium, Galina-Adeline, Lipitor, Xanax, Lopressor, insulin and Xifaxan. ALLERGIES: None. SOCIAL HISTORY: The patient has a prior history of tobacco use and alcohol use. FAMILY HISTORY: Unremarkable. REVIEW OF SYSTEMS: A 10-point review of systems adds nothing to the history of present illness. PHYSICAL EXAMINATION: GENERAL: The patient is awake, alert, in no acute distress. Blood pressure is 120/47, with a heart rate of 120. HEENT: Normocephalic and atraumatic. No icterus. NECK: No JVD. Trachea is midline. CHEST: Clear to auscultation. CARDIAC: Irregular regular tachycardia without murmur. ABDOMEN: Soft, nontender. Bowel sounds are present. EXTREMITIES: No clubbing, cyanosis, or edema. LABORATORY: A chemistry group shows a creatinine is 7.8 with a BUN of 55, potassium is 4.9, troponin is 0.1. Ammonia level is 43. Liver function tests from 4 days ago show an alkaline phosphatase of 186 and a bilirubin of 3.5. An INR is 1.4. Arterial blood gas shows a pH of 7.32 with a pO2 of 97, CO2 of 53 and a bicarbonate of 29. Lactate is 1.8. The patient was on 8 L of oxygen. A chest x-ray demonstrates congestive heart failure with pulmonary vascular congestion/edema and basilar atelectasis. Images reviewed. ASSESSMENT: 1. Acute hypoxemic and hypercapnic respiratory failure. This may be due to fluid overload. The patient is improved now on oxygen at a flow rate of just 3 L /minute, down from 10 L/minute and needing BiPAP. He had respiratory acidosis on his arterial blood gas when he was more obtunded. He is likely improved due to some fluid removal, which was just 1 L, but seems to have helped. 2. Atrial fibrillation with rapid ventricular response. The patient's blood pressure is currently okay, although Dr. Page made the decision to stop taking fluid off. A Cardizem drip has been ordered to try to help control the rate. 3. End-stage renal disease on hemodialysis. 4. Back pain, status post kyphoplasty. 5. Obtundation: Likely due to acute respiratory failure as well as narcotics. Improved with HD and holding narcotics. RECOMMENDATIONS: 1. Start Cardizem drip. The patient has another hour of hemodialysis, and we may be able to get some more fluid off if his heart rate comes down. The patient will be monitored in the ICU overnight. His chest x-ray will be repeated tomorrow and the patient will be reassessed clinically to determine if he could benefit from and tolerate more fluid removal. 2. Fever. The patient has isolated temperature of 38.2 this afternoon. The most likely cause would be aspiration, as the patient was obtunded earlier today. He has been started on vancomycin and Zosyn empirically. RECOMMENDATIONS: 1. Wean oxygen as needed. 2. Start Cardizem drip in the hopes that we can resume some fluid removal. 3. Follow chest x-ray, fever and white blood count to determine if empiric antibiotics should be continued. /[id number]/MODL MTDD
[2016-05-20] MEDS ORDERED: METOPROLOL TARTRATE 25 MG TAB PO ONE (17:13)
[2016-05-20 18:22] LABS: BASE EXCESS 2.4 mEq/L (-2.5-2.5); BICARBONATE 28 mEq/L (22-26); MEASURED OXYGEN SATURATION 99 % (92-95); PCO2 49 mmHg (34-38); PO2 117 mmHg (65-75); TCO2 29 mEq/L (23-27)
[2016-05-20] MEDS: METOPROLOL TARTRATE 25 MG TAB PO SCH (21:30)
[2016-05-20] MEDS: ATORVASTATIN CALCIUM 40 MG TAB PO SCH (21:30)
[2016-05-20] MEDS: HEPARIN 5,000 UNIT/0.5 ML SYR SC SCH (21:31)
[2016-05-20] MEDS: INSULIN GLARGINE 100 UNITS/ML SYRINGE SC SCH (21:31)
[2016-05-20] MEDS: LACTULOSE 20 GM/30 ML UDCUP PO SCH (21:31)
[2016-05-21] MEDS: HEPARIN 5,000 UNIT/0.5 ML SYR SC SCH ×3 (05:04→20:33)
[2016-05-21] MEDS: PIPERACILLIN/TAZO 2.25 GM/DEX 50 ML IV SCH ×3 (05:04→20:41)
[2016-05-21 05:25] LABS: % IMMATURE GRANULYOCYTES 0.4 % (0.0-1.1); ABSOLUTE IMMATURE GRANULOCYTES 0.02 10^3/uL (0.00-0.10); ADD DIFF? NO; ADD MORPH? NO; ADD SCAN? NO; ATYPICAL LYMPHOCYTE FLAG 0 (0-99); FRAGMENT RBC FLAG 0 (0-99); HEMATOCRIT 26.4 % (40.0-51.0); HEMOGLOBIN 8.9 g/dL (13.7-17.5); LEFT SHIFT FLG 10 (0-99); LIPEMIA HEMOLYSIS FLAG 80 (0-99); MEAN CELL HEMOGLOBIN CONCENTR. 33.7 g/dL (32.4-36.7); MEAN CELL VOLUME 112.8 fL (81.5-99.8); MEAN PLATELET VOLUME 10.1 fL (8.7-11.7); PLATELET CLUMPS FLAG 0 (0-99); PLATELET COUNT 62 10^3/uL (150-400); RED BLOOD CELL COUNT 2.34 10^6/uL (4.40-6.38); RED CELL DISTRIBUTION WIDTH 15.8 % (11.5-15.2)
[2016-05-21 05:42] LABS: ALBUMIN 2.2 g/dL (3.5-5.0); ANION GAP 8 mEq/L (8-16); CALCIUM 7.8 mg/dL (8.5-10.4); CARBON DIOXIDE 30 mEq/l (22-31); CHLORIDE 98 mEq/L (97-110); CREATININE 4.7 mg/dL (0.7-1.3); GLOMERULAR FILTRATION RATE 12; GLUCOSE 105 mg/dL (70-100); POTASSIUM 4.3 mEq/L (3.5-5.2); SODIUM 136 mEq/L (134-144)
--- NOTE | 2016-05-21 07:35 | SOAPPROG ---
[facility] Progress Note Assessment/Plan: Assessment: 1. ESRD. HD tomorrow on TTS schedule. 2. Vertebral compression fractures. S/p kyphoplasty. LE strength in bed seems ok. 3. AMS. Pain meds likely culprit. Improving per . Per hospitalist service. 4. Cirrhosis. Continue rifaximin, lactulose. Plan: 05/21/16 07:33 Subjective: Had dialysis yesterday. Developed AF/RFR afterwards. Only 1 L fluid removed. HR back to normal now. C/o back pain but overall better. C/o confusion. Improving per . Objective: Vital Signs Temp Pulse Resp BP Pulse Ox 36.9 C 62 12 133/50 H 100 05/20/16 20:00 05/21/16 04:00 05/21/16 04:00 05/21/16 04:00 05/21/16 04:00 Laboratory Results 05/21/16 05:00 05/21/16 05:00 05/20/16 05/21/16 05/22/16 05:59 05:59 05:59 Intake Total 0 680 Output Total 0 1200 Balance 0 -520 PT 17.0 SEC (12.0-15.0) H 05/19/16 13:25 INR 1.39 (0.83-1.16) H 05/19/16 13:25 Awake, alert, confused, comfortable, in bed RRR, no m/g/r CTAB Abdom soft, nontender No edema LUE AVF with good thrill Neuro: Not oriented to place/time/year. No asterixis. Nl distal LE strength. ICD10 Worksheet Patient Problems: Problems Problem Status Diagnosed End stage renal disease Acute History of cirrhosis of liver Acute Hypoxemia Acute Lumbar compression fracture Acute Macrocytic anemia Acute Spinal stenosis of lumbar region Acute Thoracic compression fracture Acute Thrombocytopenia Acute
--- NOTE | 2016-05-21 08:10 | HOSPPROG ---
Hospitalist Progress Note Assessment/Plan: #Acute hypercarbic resp failure: due to opioids #Hypotension: this morn. Bolused 500cc with improvement #ESRD: HD per renal #Acutely decompensated diastolic HF -initially required BiPap #Thrombocytopenia -stable #Decompensated cirrhosis -rifaximin, lactulose #Acute on chronic encephalopathy -improved. Per , he does get confused at home -cont Lactulose/rifaximin #Atrial fibrillation -after HD #LE paresis -due to compression fracture -s/p kyphoplasty #Aspiration PNA -Vanc/Zosyn, Day 2 #Controlled DM: cont glargine, SSI #Diet: renal #Disp: transfer to floor Subjective: no pain. No BM in several days Objective: Vital Signs Temp Pulse Resp BP Pulse Ox 36.8 C 58 L 10 L 95/38 L 100 05/21/16 07:38 05/21/16 07:38 05/21/16 07:38 05/21/16 07:38 05/21/16 07:38 Laboratory Results 05/21/16 05:00 05/21/16 05:00 05/20/16 05/21/16 05/22/16 05:59 05:59 05:59 Intake Total 0 680 Output Total 0 1200 Balance 0 -520 PT 17.0 SEC (12.0-15.0) H 05/19/16 13:25 INR 1.39 (0.83-1.16) H 05/19/16 13:25 - Physical Exam Constitutional: chronically ill appearing Eyes: PERRL Ears, Nose, Mouth, Throat: moist mucous membranes, hearing normal Cardiovascular: regular rate and rhythym Respiratory: no respiratory distress, no rales or rhonchi Gastrointestinal: normoactive bowel sounds, soft, non-tender abdomen Genitourinary: no bladder fullness Skin: warm Musculoskeletal: full muscle strength Neurologic: AAOx3 (A&O x 2), asterixes (none) Psychiatric: interacting appropriately ICD10 Worksheet Patient Problems: Problems Problem Status Diagnosed End stage renal disease Acute History of cirrhosis of liver Acute Hypoxemia Acute Lumbar compression fracture Acute Macrocytic anemia Acute Spinal stenosis of lumbar region Acute Thoracic compression fracture Acute Thrombocytopenia Acute
[2016-05-21] MEDS: INSULIN LISPRO 100 UNIT/ML SC SCH ×3 (08:46→18:59)
--- NOTE | 2016-05-21 08:52 | DX ---
Portable Chest, Single View 5:59 a.m. Indication: Fever. CHF. Possible aspiration. Comparison: Portable chest dated May 20, 2016 Findings: The right basilar consolidation and right pleural effusion have nearly completely resolved since one day prior. Minimal interstitial edema has improved. Left basilar consolidation persists. Gianni rderline cardiomegaly unchanged for technique. Impression: 1. Improving CHF and right basilar consolidation since one day prior. 2. No evidence of new aspiration.
[2016-05-21] MEDS ORDERED: NS 500 ML IV ONE (09:00)
[2016-05-21] MEDS: LACTULOSE 20 GM/30 ML UDCUP PO SCH ×3 (09:41→20:32)
[2016-05-21] MEDS: NEPHROVITE FOLIC ACID/VIT B&C 1 TAB PO SCH (09:42)
[2016-05-21] MEDS: RIFAXIMIN 550 MG TAB PO SCH ×2 (09:42→20:32)
[2016-05-21] MEDS: PANTOPRAZOLE SODIUM 40 MG TAB PO SCH (09:42)
[2016-05-21] MEDS: SENNOSIDES/DOCUSATE SODIUM TAB PO SCH (09:42)
[2016-05-21] MEDS: METOPROLOL TARTRATE 25 MG TAB PO SCH ×2 (09:43→20:32)
--- NOTE | 2016-05-21 11:40 | PDINTPN ---
Business Coordinator Progress Note Assessment/Plan: Assessment: Acute hypoxemic and hypercapneic respiratory failure: Improved. Obtundation: Likely due to respiratory failure with hypercapnea, as well as narcotics. Improved, nearing baseline. CKD: On HD, which he tolerated yesterday. Atrial fibrillation: returned to sinus rhythm. Off diltiazem Back pain: s/p kyphoplasty. Pain-free. Plan: Resume dialysis schedule. Increase activity as tolerated per NS. OK to transfer to floor. 05/21/16 11:40 Subjective: Feels OK, denies pain. Able to stand. Fair appetite. Objective: Vital Signs Temp Pulse Resp BP Pulse Ox 36.8 C 58 L 10 L 120/55 L 100 05/21/16 07:38 05/21/16 07:38 05/21/16 07:38 05/21/16 10:40 05/21/16 07:38 Laboratory Results 05/21/16 05:00 05/21/16 05:00 05/20/16 05/21/16 05/22/16 05:59 05:59 05:59 Intake Total 0 680 Output Total 0 1200 Balance 0 -520 PT 17.0 SEC (12.0-15.0) H 05/19/16 13:25 INR 1.39 (0.83-1.16) H 05/19/16 13:25 CXR: Improved CHF. No new infiltrates. Images reviewed. Physical Exam - Physical Exam General Appearance: alert, no apparent distress EENT: normal ENT inspection Neck: normal inspection Respiratory: lungs clear, normal breath sounds Cardiac/Chest: regular rate, rhythm, edema Abdomen: normal bowel sounds, non-tender Skin: normal color, warm/dry Extremities: normal inspection Neuro/Psych: alert, normal mood/affect ICD10 Worksheet Patient Problems: Problems Problem Status Diagnosed End stage renal disease Acute History of cirrhosis of liver Acute Hypoxemia Acute Lumbar compression fracture Acute Macrocytic anemia Acute Spinal stenosis of lumbar region Acute Thoracic compression fracture Acute Thrombocytopenia Acute
--- NOTE | 2016-05-21 13:38 | ECHO ---
[id number] + + [address] : : [place] [address] : : [phone] + + Adult Echocardiographic Report + + :Name: Ally DICKEY Date: 05/21/2016 09:58 AM : : Hospital Admission Number: [id number] ocation: 241: :: 1950 Gender: Male Height: 6 8 in : :Age: 65 yrs Race: [facility] Weight: 1 45 lb : :Reason For Study: Eval LV Fx : : BSA: 1.8 meters2 : :History: New onset of Atrial Fibrilation, Now resolved. ESRD : + + MMode/2D Measurements & Calculations IVSd: 0.81 cm LVIDd: 4.4 cm FS: 42.7 % Ao root diam: 3.0 cm LVPWd: 0.95 cm LVIDs: 2.5 cm EDV(Teich): 86.0 ml ACS: 2.0 cm ESV(Teich): 22.4 ml EF(Teich): 74.0 % Normal Measurement Values: + + :LVIDd (3.5-5.7cm) IVSd (0.6-1.1cm) LVPWd (0.6-1.1cm) Aortic Root (2.0-3.7cm)Left Atrium (1.5-4.0cm): :LV Vol(d) (76-115ml) LV Vol(s) (29-48ml) Ejec Fraction (50-65%)PV Enrike (0.6- 1.2m/s) TV Enrkie (0.4-1.0m/s) : :MV E Enrike (0.8-1.0m/s)MV A Enrike (0.3-1.0m/s)LVOT Enrike (0.7-1.2m/s) Asc Ao Enrike ( 0.9-1.8m/s) : + + Doppler Measurements & Calculations MV E max enrike: Ao V2 max: LV V1 max: TR max enrike: 130.3 cm/sec 138.5 cm/sec 100.7 cm/sec 320.3 cm/sec MV A max enrike: Ao max PG: LV V1 max PG: TR max P.7 cm/sec 7.7 mmHg 4.1 mmHg 41.0 mmHg MV E/A: 2.1 RAP systole: 5.0 mmHg RVSP(TR): 46.0 mmHg Left Ventricle The left ventricle is normal in size. There is normal left ventricular wall thickness. The left ventricular ejection fraction is normal. There is Doppler evidence for diastolic dysfunction. Ejection Fraction = 74%. The left ventricular wall motion is normal. Right Ventricle The right ventricle is normal in size and function. Atria The Left Atrial Volume is 41 ml/m2. The left atrium is mildly dilated. Right atrial size is normal. Mitral Valve The mitral valve is normal in structure and function. There is no evidence of mitral valve prolapse. There is no mitral valve stenosis. There is trace mitral regurgitation. Tricuspid Valve There is mild tricuspid regurgitation. Right ventricular systolic pressure is 46mmHg. There is Doppler evidence for mild pulmonary hypertension. Aortic Valve The aortic valve is normal in structure and function. The aortic valve is trileaflet. There is no aortic stenosis. There is no aortic insufficiency. Pulmonic Valve The pulmonic valve is normal in structure and function. There is no pulmonic valvular regurgitation. Great Vessels The aortic root is normal size. Pericardium/Pleural There is no pericardial effusion. There is a small pleural effusion. Conclusion A complete two-dimensional transthoracic echocardiogram was performed (2D, M-mode, Doppler and color flow Doppler). No subcostal views are available due to high acoustic window. The left ventricular ejection fraction is normal. There is Doppler evidence for diastolic dysfunction. Ejection Fraction = 74%. The left ventricular wall motion is normal. The right ventricle is normal in size and function. The Left Atrial Volume is 41 ml/m2. The left atrium is mildly dilated. The mitral valve is normal in structure and function. There is trace mitral regurgitation. There is mild tricuspid regurgitation. Right ventricular systolic pressure is 46mmHg. There is Doppler evidence for mild pulmonary hypertension. The aortic valve is normal in structure and function. The aortic valve is trileaflet. There is no pericardial effusion. There is a small pleural effusion. Final Reading Physician: Yung Pizarro signed on 05/21/2016 01:37 PM Ordering Physician: Yayo David Performed By: Yasmany Munson, CS
--- NOTE | 2016-05-21 15:32 | CT ---
CT lumbar spine without contrast History: Assess multilevel thoracolumbar vertebral augmentation/kyphoplasty performed on May 19, 2016. Technique: Multidetector helical CT was performed through the lumbar spine using dose reduction techn ology. Findings: Compare MRI of May 16, 2016. Good distribution of opaque cement is found within vertebr al bodies of T12 and L1, with no extravasation into spinal canal. No evidence of venous embolization. At L4, radiopaque cement is found within the vertebral body, with none in the spinal canal. Opaque ce ment extends through fracture of the superior cortical endplate to enter the midportion of the inters pace at L3-L4. Mild spinal stenosis is caused by retropulsed fragment at the superior cortical margin of L4. Spinal canal, however, is developmentally roomy, and the small amount of stenosis is of dubio us clinical significance. Severe facet arthropathy is noted bilaterally at L5-S1. Oval masses in the left retroperitoneal region are probably varicose veins related to spontaneous spl enorenal shunt in this patient with end-stage hepatic cirrhosis. Impression: 1. Good results of thoracic and lumbar vertebral augmentation/kyphoplasty, with excellent distributio n of cement at T12 and L1 and adequate distribution at L4. 2. Mild spinal stenosis at L4. 3. Facet arthropathy at L5-S1, bilateral.
[2016-05-21] MEDS: INSULIN GLARGINE 100 UNITS/ML SYRINGE SC SCH (20:33)
[2016-05-21] MEDS: ATORVASTATIN CALCIUM 40 MG TAB PO SCH (20:33)
[2016-05-22] MEDS: HEPARIN 5,000 UNIT/0.5 ML SYR SC SCH ×3 (06:03→21:59)
[2016-05-22] MEDS: PIPERACILLIN/TAZO 2.25 GM/DEX 50 ML IV SCH (06:03)
[2016-05-22 06:48] LABS: ADD DIFF? NO; ADD MORPH? NO; ADD SCAN? NO; ATYPICAL LYMPHOCYTE FLAG 30 (0-99); FRAGMENT RBC FLAG 0 (0-99); HEMOGLOBIN 7.8 g/dL (13.7-17.5); LEFT SHIFT FLG 0 (0-99); LIPEMIA HEMOLYSIS FLAG 90 (0-99); MEAN CELL HEMOGLOBIN CONCENTR. 33.9 g/dL (32.4-36.7); MEAN CELL VOLUME 112.2 fL (81.5-99.8); PLATELET CLUMPS FLAG 0 (0-99); PLATELET COUNT 50 10^3/uL (150-400); RED BLOOD CELL COUNT 2.05 10^6/uL (4.40-6.38); RED CELL DISTRIBUTION WIDTH 15.6 % (11.5-15.2)
[2016-05-22 08:10] LABS: ALBUMIN 2.1 g/dL (3.5-5.0); ANION GAP 10 mEq/L (8-16); CALCIUM 7.8 mg/dL (8.5-10.4); CARBON DIOXIDE 26 mEq/l (22-31); CHLORIDE 102 mEq/L (97-110); CREATININE 6.6 mg/dL (0.7-1.3); GLOMERULAR FILTRATION RATE 8; GLUCOSE 105 mg/dL (70-100); POTASSIUM 3.8 mEq/L (3.5-5.2); SODIUM 138 mEq/L (134-144)
--- NOTE | 2016-05-22 08:42 | SOAPPROG ---
MICHAEL Progress Note Assessment/Plan: Assessment: 1. ESRD. On HD today on TTS schedule. 2. Vertebral compression fractures. S/p kyphoplasty. Good result on CT scan. Still with pain. 3. AMS. Pain meds likely culprit. Improving somewhat. Per hospitalist service. 4. Cirrhosis. Continue rifaximin, lactulose. 5. Hypotension. Afebrile. Per pt normally BP is high. Suspect pain med effect/ other. Nevertheless, will hold off on UF today as volume status looks ok. 6. Anemia. Hgb dropped today. Repeat in am to see if spurious. s/p procrit 05/20. Plan: 05/21/16 07:33 05/22/16 08:41 05/22/16 08:42 Subjective: Pt seen and examined on dialysis. Back pain 11/27. No other complaints. Objective: Vital Signs Temp Pulse Resp BP Pulse Ox 37.0 C 68 18 93/34 L 94 05/21/16 19:39 05/21/16 20:32 05/21/16 19:39 05/21/16 20:32 05/21/16 19:39 Laboratory Results 05/22/16 05:30 05/22/16 05:30 05/21/16 05/22/16 05/23/16 05:59 05:59 05:59 Intake Total 680 1900 Output Total 1200 50 Balance -520 1850 PT 17.0 SEC (12.0-15.0) H 05/19/16 13:25 INR 1.39 (0.83-1.16) H 05/19/16 13:25 In chair, on dialysis. Qb [address], month but not year RRR, I/ ADOLFO CTAB Abdom soft, nt No edema ICD10 Worksheet Patient Problems: Problems Problem Status Diagnosed End stage renal disease Acute History of cirrhosis of liver Acute Hypoxemia Acute Lumbar compression fracture Acute Macrocytic anemia Acute Spinal stenosis of lumbar region Acute Thoracic compression fracture Acute Thrombocytopenia Acute
[2016-05-22] MEDS: INSULIN LISPRO 100 UNIT/ML SC SCH ×3 (09:14→17:32)
[2016-05-22] MEDS: HYDROmorphONE/DILAUDID 1 MG/ML SYR IVP PRN (09:22)
[2016-05-22] MEDS: SENNOSIDES/DOCUSATE SODIUM TAB PO SCH (10:39)
[2016-05-22] MEDS: LACTULOSE 20 GM/30 ML UDCUP PO SCH (11:15)
[2016-05-22] MEDS ORDERED: LACTULOSE 20 GM/30 ML UDCUP PO PRN (11:50)
--- NOTE | 2016-05-22 11:56 | HOSPPROG ---
Hospitalist Progress Note Assessment/Plan: #Acute hypercarbic resp failure: due to opioids +/- aspiration #Hypotension: resolved #ESRD: HD per renal #Acutely decompensated diastolic HF -initially required BiPap -cont BB #Thrombocytopenia -stable #Decompensated cirrhosis -rifaximin, lactulose #Acute on chronic encephalopathy: resolved -improved. Per , he does get confused at home depending on number of BMs -decrease Lactulose dose for 2-3 BMs daily #Atrial fibrillation -now in NSR. Cont BB. #LE paresis -due to compression fracture -s/p kyphoplasty. Repeat imaging shows good results #Aspiration PNA vs. pneumonitis -Given no symptoms, afebrile and negative cxs. Will stop abx and observe #Controlled DM: cont glargine, SSI #Diet: renal #Disp: awaiting SNF placement. SW to talk with today Subjective: breathing feels better Objective: Vital Signs Temp Pulse Resp BP Pulse Ox 37.0 C 68 18 93/34 L 94 05/21/16 19:39 05/21/16 20:32 05/21/16 19:39 05/21/16 20:32 05/21/16 19:39 Laboratory Results 05/22/16 05:30 05/22/16 05:30 05/21/16 05/22/16 05/23/16 05:59 05:59 05:59 Intake Total 680 1900 Output Total 1200 50 Balance -520 1850 PT 17.0 SEC (12.0-15.0) H 05/19/16 13:25 INR 1.39 (0.83-1.16) H 05/19/16 13:25 - Physical Exam Constitutional: no apparent distress, chronically ill appearing, cachectic Eyes: PERRL Ears, Nose, Mouth, Throat: dry mucous membranes Cardiovascular: regular rate and rhythym Respiratory: no respiratory distress, no rales or rhonchi Gastrointestinal: normoactive bowel sounds, soft, non-tender abdomen Genitourinary: no bladder fullness Skin: warm Musculoskeletal: full muscle strength Neurologic: AAOx3 Psychiatric: interacting appropriately ICD10 Worksheet Patient Problems: Problems Problem Status Diagnosed End stage renal disease Acute History of cirrhosis of liver Acute Hypoxemia Acute Lumbar compression fracture Acute Macrocytic anemia Acute Spinal stenosis of lumbar region Acute Thoracic compression fracture Acute Thrombocytopenia Acute
[2016-05-22] MEDS: PANTOPRAZOLE SODIUM 40 MG TAB PO SCH (13:05)
[2016-05-22] MEDS: RIFAXIMIN 550 MG TAB PO SCH ×2 (13:05→21:57)
[2016-05-22] MEDS: METOPROLOL TARTRATE 25 MG TAB PO SCH ×2 (13:05→21:54)
[2016-05-22] MEDS: NEPHROVITE FOLIC ACID/VIT B&C 1 TAB PO SCH (13:07)
[2016-05-22] MEDS ORDERED: ALPRAZolam 0.25 MG TAB PO SCH (21:00)
[2016-05-22] MEDS: GABAPENTIN 100 MG CAP PO SCH (21:55)
[2016-05-22] MEDS: ATORVASTATIN CALCIUM 40 MG TAB PO SCH (21:55)
[2016-05-22] MEDS: INSULIN GLARGINE 100 UNITS/ML SYRINGE SC SCH (21:59)
[2016-05-22] MEDS ORDERED: ALPRAZolam 0.5 MG TAB PO SCH (23:00)
[2016-05-22 23:15] VITALS: O2SAT 100
[2016-05-23 06:19] LABS: % IMMATURE GRANULYOCYTES 0.4 % (0.0-1.1); ABSOLUTE IMMATURE GRANULOCYTES 0.01 10^3/uL (0.00-0.10); ADD DIFF? NO; ADD MORPH? NO; ADD SCAN? NO; ATYPICAL LYMPHOCYTE FLAG 30 (0-99); FRAGMENT RBC FLAG 0 (0-99); HEMATOCRIT 22.7 % (40.0-51.0); HEMOGLOBIN 7.9 g/dL (13.7-17.5); LEFT SHIFT FLG 0 (0-99); LIPEMIA HEMOLYSIS FLAG 90 (0-99); MEAN CELL HEMOGLOBIN 38.3 pg (27.9-34.1); MEAN CELL HEMOGLOBIN CONCENTR. 34.8 g/dL (32.4-36.7); MEAN CELL VOLUME 110.2 fL (81.5-99.8); MEAN PLATELET VOLUME 9.8 fL (8.7-11.7); PLATELET CLUMPS FLAG 10 (0-99); RED BLOOD CELL COUNT 2.06 10^6/uL (4.40-6.38); RED CELL DISTRIBUTION WIDTH 15.3 % (11.5-15.2)
[2016-05-23 06:21] LABS: PLATELET COUNT 45 10^3/uL (150-400)
[2016-05-23 06:43] LABS: ALBUMIN 1.9 g/dL (3.5-5.0); ANION GAP 7 mEq/L (8-16); CALCIUM 7.4 mg/dL (8.5-10.4); CARBON DIOXIDE 27 mEq/l (22-31); CHLORIDE 101 mEq/L (97-110); CREATININE 4.5 mg/dL (0.7-1.3); GLOMERULAR FILTRATION RATE 13; GLUCOSE 97 mg/dL (70-100); POTASSIUM 3.5 mEq/L (3.5-5.2); SODIUM 135 mEq/L (134-144)
[2016-05-23 06:46] LABS: PLATELET ESTIMATE DECREASED (ADEQ)
[2016-05-23] MEDS: HEPARIN 5,000 UNIT/0.5 ML SYR SC SCH (06:46)
[2016-05-23] MEDS: INSULIN LISPRO 100 UNIT/ML SC SCH ×2 (07:28→12:14)
[2016-05-23 08:15] VITALS: BP 124/48; PULSE 63; RESP 14; TEMP 98
[2016-05-23] MEDS: NEPHROVITE FOLIC ACID/VIT B&C 1 TAB PO SCH (08:17)
[2016-05-23] MEDS: PANTOPRAZOLE SODIUM 40 MG TAB PO SCH (08:17)
[2016-05-23] MEDS: RIFAXIMIN 550 MG TAB PO SCH (08:17)
[2016-05-23] MEDS: METOPROLOL TARTRATE 25 MG TAB PO SCH (08:20)
[2016-05-23] MEDS: SENNOSIDES/DOCUSATE SODIUM TAB PO SCH (08:33)
--- NOTE | 2016-05-23 11:14 | PDIAF ---
- Diagnosis Code Status: Full Code - Medication Management Discharge Medications: Medications to Continue on Transfer ALPRAZolam [Xanax 0.5 MG (*)] 0.5 - 1 mg PO HS 05/16/16 [Last Taken 05/15/16] Atorvastatin Calcium [Lipitor 40 mg (*)] 40 mg PO DAILY 05/16/16 [Last Taken ] Esomeprazole Magnesium [Nexium 24Hr] 20 mg PO DAILY 05/16/16 [Last Taken ] Folic Acid/Vitamin B Comp W-C [Galina-Adeline Tablet] 1 tab PO DAILY 05/16/16 [Last Taken Unknown] Hydrocodone/Acetaminophen [Hydrocodon-Acetaminoph 7.5-325] 1 each PO Q6H PRN [Last Taken Unknown] Insulin Glargine [Lantus 100 UNITS/ML (*)] 20 units SC HS 05/16/16 [Last Taken 05/15/16] Lactulose [Constulose] 20 gm PO TID PRN 05/16/16 [Last Taken 05/15/16] Rifaximin [Xifaxan] 550 mg PO BID 05/16/16 [Last Taken 05/15/16] Sennosides/Docusate Sodium [Senna-Docusate Sodium Tablet] 2 each PO DAILY [Last Taken 05/15/16] Epoetin Walter [Procrit 74674 UNIT/ML (*)] 10,000 unit SC Q7D #0 vial 05/23/16 [ Last Taken Unknown] Gabapentin [Neurontin 100 MG (*)] 100 mg PO HS #30 cap 05/23/16 [Last Taken Unknown] Insulin Lispro [humALOG LISPRO 100 units/ml (*)] 1 - 10 unit SC DAILY #0 vial [Last Taken Unknown] Metoprolol Tartrate [Lopressor 25 mg (*)] 12.5 mg PO BID #60 tab 05/23/16 [Last Taken Unknown] Discharge Medications: Refer to the Discharge Home Medication list for PRN reason. - Orders Services needed: Home Care, Physical Therapy, Occupational Therapy Home Care Face to Face: I certify that this patient was under my care and that I had the required [id number] encounter meeting the encounter requirements on the discharge day. My findings support the fact that the patient is homebound as defined in CMS Chapter 7 Medicare Benefits Manual 30.1.1, The condition of the patient is such that there exists a normal inability to leave home and consequently, leaving home would require a considerable and taxing effort. Diet Texture: Regular Texture Diet, Thin Liquids, Meds Whole w/Liquids - Follow Up Care Current Providers and Referrals: [place] STATE,. [Primary Care Provider] -
--- NOTE | 2016-05-23 12:28 | SOAPPROG ---
MICHAEL Progress Note Assessment/Plan: Assessment: 1. ESRD. On HD today on TTS schedule. 2. Vertebral compression fractures. S/p kyphoplasty. Good result on CT scan. Still with pain. 3. AMS. Pain meds likely culprit. Improving somewhat. Per hospitalist service. 4. Cirrhosis. Continue rifaximin, lactulose. 5. Hypotension. Afebrile. 6. Anemia. Hgb dropped today. Repeat in am to see if spurious. s/p procrit 05/20. 05/23/16 12:28 Objective: Vital Signs Temp Pulse Resp BP Pulse Ox 36.7 C 63 14 124/48 H 100 05/23/16 08:00 05/23/16 08:00 05/23/16 08:00 05/23/16 08:00 05/23/16 08:00 Laboratory Results 05/23/16 06:00 05/23/16 06:00 05/22/16 05/23/16 05/24/16 05:59 05:59 05:59 Intake Total 1900 650 Output Total 50 Balance 1850 650 PT 17.0 SEC (12.0-15.0) H 05/19/16 13:25 INR 1.39 (0.83-1.16) H 05/19/16 13:25 ICD10 Worksheet Patient Problems: Problems Problem Status Diagnosed End stage renal disease Acute History of cirrhosis of liver Acute Hypoxemia Acute Lumbar compression fracture Acute Macrocytic anemia Acute Spinal stenosis of lumbar region Acute Thoracic compression fracture Acute Thrombocytopenia Acute
--- NOTE | 2016-05-23 13:01 | GDS ---
[f rep st] DISCHARGE SUMMARY DISCHARGE DIAGNOSES: 1. End-stage liver disease. 2. Cirrhosis. 3. Thrombocytopenia. 4. Type 1 diabetes. 5. BenignHypertension. 6. Acute compression fracture 7. Gastroesophageal reflux disease. 8. Hyperlipidemia. 9. Aspiration pneumonitis. 10. Acute encephalopathy. 11. Normocytic anemia. 12. Atrial fibrillation. 13. Lower extremity paresthesias. 14. Acutely decompensated diastolic heart failure. PROCEDURES: Kyphoplasty T12-L1 and L4 on 05/19/2016. HISTORY OF PRESENT ILLNESS: The patient is a 65-year-old male with history of cirrhosis, end-stage renal disease on dialysis, multiple vertebral fractures, coming in with 10 days of increasing bilateral lower extremity weakness and inability to ambulate. He has had to have 2 people to help assist. He was seen at [facility] and referred here for emergent MRI. MRI demonstrated acute T12 through L4 compression fracture. HOSPITAL COURSE BY PROBLEM: 1. Lower extremity weakness: secondary to acute compression fractures. Evaluated by both Neurology and Neurosurgery and deemed a poor surgical candidate given end-stage renal disease, cirrhosis, and thrombocytopenia. Treatment was minimized to kyphoplasty T12-L1 and L4. He is currently walking with a walker and will be discharged home with PT/OT. Pain has been well controlled. 2. Atrial fibrillation with RVR: day following kyphoplasty, patient became obtunded and disoriented. He was placed on BiPAP and transferred to the ICU. At that time, he was found to have a heart rate of 120s to 130s. Was on Cardizem drip briefly. HR stable on BB. Not an anticoagulation candidate given multiple comorbidities and thrombocytopenia. 3. Acute encephalopathy: secondary to hypercapnia and acute hepatic encephalopathy. Since resolved. Per , patient does get confused intermittently at home depending on how many bowel movements he has. 4. Acute hypoxemic/hypercapnic respiratory failure: due to sedation with procedure. Required BiPAP briefly. He is currently stable on room air. 5. End-stage renal disease: Continue dialysis. 6. Back pain: Controlled on low-dose oxycodone and Tylenol. 7. Normocytic anemia: H/H has dropped the last couple of days; currently 7.. No active bleeding, BP stable. He has received erythropoietin here. Recommend repeat CBC with dialysis tomorrow. 8. Controlled type 1 diabetes: glargine 20 units.On SSI at home 15-20 units. I decreased this dose given he had some borderline sugars here. 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 9. Fever: Patient had fever on day after procedure when found obtunded. He was initially started on antibiotics for aspiration pneumonia. However, suspect more likely pneumonitis given acuity. Has since been afebrile without symptoms, so stopped antibiotics. Blood cultures NGTD. 10. Thrombocytopenia secondary to cirrhosis: Platelets are stable. No active bleeding. 11. Acutely decompensated diastolic heart failure. Echo showed normal EF. There is some evidence of pulmonary hypertension. The patient was dialyzed with improvement. Blood pressure is at goal. DISPOSITION: Patient is stable for discharge to home with PT/OT. FOLLOWUP: 1. Dialysis tomorrow. 2. Repeat CBC, BMP, and vitamin D level. 3. Follow up with Endocrinology. 4. Home services. The patient's is working with [employer] to have a home assessment nurse come 3 times a week. They are completing this paperwork. /[id number]/MODL MTDD
== END 2016-05-23 12:42 | disposition home health service (06) | DRG 518 ==
LOC: F3N 18:27 → F2N 05-20 11:25
PROVIDERS: ADMIT Family Medicine; ATTEND Internal Medicine
DX: M48.54XA Collapsed vertebra, not elsewhere classified, thoracic region, initial encounter for fracture (principal); M48.56XA Collapsed vertebra, not elsewhere classified, lumbar region, initial encounter for fracture; N18.6 End stage renal disease; J96.92 Respiratory failure, unspecified with hypercapnia; J69.0 Pneumonitis due to inhalation of food and vomit; I50.31 Acute diastolic (congestive) heart failure; I13.0 Hypertensive heart and chronic kidney disease with heart failure and stage 1 through stage 4 chronic kidney disease, or unspecified chronic kidney disease; K74.60 Unspecified cirrhosis of liver; G93.40 Encephalopathy, unspecified; D69.6 Thrombocytopenia, unspecified; E10.9 Type 1 diabetes mellitus without complications; K21.9 Gastro-esophageal reflux disease without esophagitis; I48.91 Unspecified atrial fibrillation; E78.5 Hyperlipidemia, unspecified; Z99.2 Dependence on renal dialysis
CPT/HCPCS: 82652-90; 92526-GN; 92610-GN; 96374; 97116-GP; 97162-GP; 97166-GO; 97530-GP; 97535-GO; G8978-GP-CK; G8979-GP-CI; G8987-GO-CK; G8988-GO-CI; G8989-GO-CI; G8996-GN-CI; G8997-GN-CI; J0330; J0690; J0885; J1170; J1815; J2001; J2250; J2310; J2370; J2405; J2543; J2704; J3010; J3370; P9035